=== PATIENT | male | born 1935 | race Caucasian/White ===

== ENCOUNTER 2016-08-18 07:50 | Inpatient (IN) | payer MEDICARE ==
[2016-08-18] VITALS (35 sets, daily range): BP systolic 86–156; BP diastolic 43–82; PULSE 84–99; RESP 15–26; O2SAT 87–100
[~2016-08-18] VITALS: Ht 177.8 cm; Wt 102.1 kg
[~2016-08-18 07:50] MED LIST: ACET325T51 PO; CALC500T9 PO; CERA453C2 EXT; CETI10TA27 PO; GABA-502 PO; HYDR12.55 PO; HYDR200T5 PO; KEN25CR EXT; KETO5DRO80 OD; LEVO88TA4 PO; OFLO5DRO9 OD; PILO5TAB2 PO; POLY17PO6 PO; PRD5T PO; PRED5DRO6 OD
--- NOTE | 2016-08-18 07:52 | ED.REPORT ---
HPI-Chest Pain 40 and Over Date of Service August 18, 2016 ED Provider: Rob Giordano MD Pt is an 81 y.o. male with a hx of "LE stents" secondary to peripheral vascular disease, GERD, HTN, and anal squamous carcinoma who presents to the ED c/o left chest pain described as sharp/achey onset 3 days ago. Pt reports associated nausea, vomiting, belching, abdominal bloating, throat pain, and neck pain. Pt state that his chest pain is exacerbated by exercise and deep inspiration. He also states he is unable to lie in a supine position due to his throat pain. He denies currently taking blood thinners. He denies any history of DVT or PE. He denies any history of heart attack. Denies any history of cardiac stents. Pt is a poor historian and needs frequent redirection. Nursing Notes Stated Complaint: CHEST PAIN Nursing Notes Reviewed: Yes Allergies: Coded Allergies: No Known Allergies (Verified , NONE, 11/19/15) Scheduled Acetaminophen (Acetaminophen) 325 Mg Tablet 650 MG PO BID Ceramides 1,3,6-11 (Cerave) 453 Gm Cream..g. 1 APPLIC EXT DAILY Cetirizine HCl (All Day Allergy) 10 Mg Tab.chew 20 MG PO DAILY Hydrochlorothiazide (Hydrochlorothiazide) 12.5 Mg Tablet 25 MG PO DAILY Hydroxychloroquine Sulfate (Hydroxychloroquine Sulfate) 200 Mg Tablet 200 MG PO BID Ibuprofen (Ibuprofen) 200 Mg Capsule 600 MG PO BID Levothyroxine (Levothyroxine) 88 Mcg Tablet 88 MCG PO DAILY Pilocarpine (Pilocarpine) 5 Mg Tablet 5 MG PO QID Take every four hours during the day Polyethylene Glycol 3350 (Miralax) 17 Gm Powd.pack 17 GM PO DAILY Prednisone (PredniSONE) 5 Mg Tab 5 MG PO DAILY Scheduled PRN Calcium Carbonate (Tums) 500 Mg Tab.chew 500 MG PO PRN PRN PRN For Epigastric Distress Clindamycin HCl (Cleocin) 150 Mg Capsule 300 MG PO QID PRN PRN For Urinary Retention Gabapentin (Gabapentin) 300 Mg Capsule 300 MG PO DAILY PRN PRN For Pain Triamcinolone Acet (Triamcinolone Acetonide Cream) 1 Applic/0.25 Gm Cr 1 APPLIC EXT DAILY PRN PRN For Itching to rash affected areas General Time Seen by MD: 07:54 Chief Complaint Chest pain Hx Obtained From: Patient Arrived By: Walk-in Sudden in Onset?: Yes Onset Occurred: 3 days ago Symptom Duration: Since onset Location: : Chest left: Neck Quality: Painful Past Medical History Past Medical History seasonal allegies restless leg syndrome History of treatment of left ureteral stricture and ureteral calculus July 29, 2013. Left-sided pleural-based spiculated mass, thought to be benign in nature, per comments below. History of total body pruritic rash, followed by Dr. Hale and Dr. Ponce of Allergy. Not thought to be paraneoplastic despite his past cancer history. 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 Urethral stricture. Bilateral femoral angiography with runoff with percutaneous intervention on totally occluded left superficial femoral artery, Dr. Hough, November 25, 2013. Reports: Cancer, GERD, Hypertension Past Surgical History peripheral vascular disease with stents in left leg Primary repair of umbilical hernia, Dr. Park, February 25, 2014. Reports: Appendectomy Family History non-contributory Smoking History Never Smoker Social History Other Social History: Ambulatory Status Independent Review of Systems Abdominal bloating Cardiovascular: Reports: Chest pain GI: Reports: Belching, Nausea, Vomiting Musculoskeletal: Reports: Neck pain Complete sys rev & neg: except as marked. Ears / Nose / Throat: Reports: Throat pain Physical Exam Initial Vital Signs Vital Signs (First) Date Time Temp Pulse Resp B/P Pulse Ox O2 Delivery O2 Flow Rate FiO2 08/18/16 07:58 36.5 99 16 153/69 100 Room Air 08/18/16 08:13 2 Initial VS: Reviewed Head / Eyes: Atraumatic, Normocephalic, PERRL Extremities: Vascular intact, Neuro intact Skin: Warm, Dry, No cyanosis Psychiatric: Mood/affect normal, Behavior normal, Normal thought content General/Constitutional: Awake, Alert, No acute distress, Well appearing, Well developed, Well hydrated, Well nourished Appearance / Presentation: Positive: Obese Respiratory / Chest: Atraumatic, Breath sounds NL, Breath sounds = bilat, No respiratory distress, No chest tenderness No reporducible tendernes to chest wall with palpation. Cardiovascular: Heart rate NL, Regular rhythm, Heart sounds NL, Cap refill not delayed, Peripheral circulation NL No unilateral calf swelling Abdomen: Atraumatic, Soft, Non-tender, No guarding, No rebound, No distention Neck: Atraumatic, Supple Neurologic: Oriented X3, Speech NL No laterizing neurologic findings. Interpretation & Diagnostics Lab Results Interpretation Result Diagram: 08/18/16 0800 08/18/16 0800 Test 08/18/16 08:00 White Blood Count 8.1th/mm3 (3.8-10.1) Red Blood Count 3.92mil/mm3 (4.40-5.80) Hemoglobin 12.3g/dL (13.8-17.2) Hematocrit 37.9% (41.0-50.0) Mean Corpuscular Volume 96.7fL (81-100) Mean Corpuscular Hemoglobin 31.4pg (27.0-35.0) Mean Corpuscular Hemoglobin Concent 32.5% (32.0-37.0) Red Cell Distribution Width 16.2% (12.3-15.4) Platelet Count 166bil/L (150-400) Neutrophils (%) (Auto) 77.7% (40-74) Lymphocytes (%) (Auto) 10.7% (14-46) Monocytes (%) (Auto) 9.4% (4-12) Eosinophils (%) (Auto) 0.7% (0-5) Basophils (%) (Auto) 0.4% (0-3) Activated Partial Thromboplast Time 28.0sec (22.8-33.0) Sodium Level 133mEq/L (134-144) Potassium Level 3.6mEq/L (3.5-5.2) Chloride Level 92mEq/L (97-108) Carbon Dioxide Level 25mmol/L (18-29) Blood Urea Nitrogen 18mg/dL (8-27) Creatinine 0.82mg/dL (0.76-1.27) Estimat Glomerular Filtration Rate 96mL/min (>59) Glucose Level 155mg/dL (60-99) Calcium Level 9.7mg/dL (8.5-10.1) Magnesium Level 1.6mg/dL (1.6-2.6) Total Bilirubin 0.4mg/dL (0.0-1.2) Aspartate Amino Transf (AST/SGOT) 16U/L (0-50) Alanine Aminotransferase (ALT/SGPT) 11U/L (0-44) Alkaline Phosphatase 76U/L (25-160) Troponin T 0.031ug/L (0.0-0.011) Pro-B-Type Natriuretic Peptide 1427pg/mL (0-486) Total Protein 7.5g/dL (6.4-8.4) Albumin 4.2g/dL (3.4-5.0) Hold [place] Top Tube Received (Received) ECG Interpretation ECG Interpretation: EKG demonstrates sinus rhythm at 96 bpm with RBBB pattern. There is ST depression in anteroseptal and lateral leads of 2-3mm. When compared to prior (11/19/15) ST depression is new. Time: 07:57 Interpreted by: ED physician Normal ECG Interpretation: Normal rate (96), Normal sinus rhythm X-Ray Chest Interpretation Chest Xray Interpretation: IMPRESSION: Bibasilar pneumonia. Follow up plain films of the chest are recommended to ensure resolution, and to exclude underlying or central malignancy. Dictated by: Jennie Lopez M.D. on 08/18/2016 at 8:43 Approved by: Jennie Lopez M.D. on 08/18/2016 at 8:44 Re-Eval/Medical Decision Med Decision/Clinical Course Pt is an 81 y.o. male with a hx of "LE stents" secondary to peripheral vascular disease, GERD, HTN, and anal squamous carcinoma who presents to the ED c/o left chest pain described as sharp/achey onset 3 days ago. Pt reports associated nausea, vomiting, belching, abdominal bloating, throat pain, and neck pain. Pt state that his chest pain is exacerbated by exercise and deep inspiration. He also states he is unable to lie in a supine position due to his throat pain. He denies currently taking blood thinners. He denies any history of DVT or PE. He denies any history of heart attack. Denies any history of cardiac stents. Pt is a poor historian and needs frequent redirection. EKG demonstrates sinus rhythm at 96 bpm with RBBB pattern. There is ST depression in anteroseptal and lateral leads of 2-3mm. When compared to prior () ST depression is new. IV access was obtained and we administered sublingual nitroglycerin as well as 324 mg of aspirin. Patient did not have much improvement in pain and therefore was treated with IV morphine. Initial presentation highly concerning for acute coronary syndrome. Multiple attempts were made to contact on-call oil truck driver Dr. Vogt upon the patient' s arrival however we were not successful for a period of greater than 30 minutes. Eventually I was able to contact on-call oil truck driver who agreed to evaluate the patient in the emergency room and recommended that we initiate heparin bolus and infusion. Chest x-ray obtained as below: Bibasilar pneumonia. Follow up plain films of the chest are recommended to ensure resolution, and to exclude underlying or central malignancy. Chest x-ray finding as above consistent with clinical picture. Patient denies fever or cough. I am unconvinced of pneumonia at this time however will observe closely and initiate antibiotics as indicated. Laboratory studies notable as below: CBC unremarkable CMP unremarkable Troponin is 0.031 BNP is 1427 PTT is 28 Patient has been admitted to CCU in consultation with cardiology on heparin infusion. Overall presentation at this time most consistent with acute coronary syndrome. No major risk factors for pulmonary embolism, no physical exam findings suggestive of DVT and my suspicion for PE is at this time relatively low. That being said, he is being treated with heparin for acute coronary syndrome regardless. Patient transferred in stable condition. Source of Hx: Old records Re-Evaluation/Progress Note: Discussed need for admit with pt. Pt understands and agrees with plan. Consultation #1: Referral / Consult Name: Iris Vogt MD Consulted With: Cardiology Requested Call at: 08:05 Call Returned at: 08:46 Note: Cardiology was originally paged at [phone], they were paged a second time at 0837. Awaiting response. Call returned at 0846. Discussed pt condition. Recommends Heparin and will come in to ED to see pt. Consultation #2: Referral / Consult Name: Chevy Rosado MD Consulted With: Hospitalist Call Returned at: 09:14 Service Writer Advisor: Accepts admit Note: Discussed pt codnition and consult with Dr. Vogt. Accepts admit. Counseled Regarding: Diagnosis, Lab results, Need for follow-up, When/why to return to ED Discharge & Departure Primary Impression: ACS (acute coronary syndrome) Additional Impressions: Chest pain Chest pain type: unspecified Qualified Code: R07.9 - Chest pain, unspecified Peripheral vascular disease ST segment depression Disposition: ADMITTED TO HOSPITAL Discharge Condition All VS Reviewed: Yes Condition: Improved Referrals: Kael Ayala MD (PCP) Crit Care Except Billable Proc Time Spent: 105-134 minutes Services Performed: Patient management by me, Time spent at bedside, Reviewing test results, Reviewing imaging, Discussing patient care, Documentation in record, Time with fam/surrogate Scribe Attestation Portions of this note were transcribed by Lui Mcclellan. I, Dr. Giordano personally performed the history, physical exam and medical decision-making; I reviewed and confirmed the accuracy of the information in the transcribed note. Signed by: Nikia Leiva, 08/18/16 and 0924. copies to: Kael Ayala MD, Beck O MD August 18, 2016 07:52 LUI MCCLELLAN August 18, 2016 08:11
[2016-08-18 08:14] LABS: BASOPHILS % (AUTO) 0.4 % (0-3); EOSINOPHILS % (AUTO) 0.7 % (0-5); MONOCYTES % (AUTO) 9.4 % (4-12); Mean Corpuscular Hemoglobin 31.4 pg (27.0-35.0); Mean Corpuscular Volume 96.7 fL (81-100); NEUTROPHILS % (AUTO) 77.7 % (40-74); Platelet Count 166 bil/L (150-400)
[2016-08-18 08:41] LABS: TROPONIN T 0.031 ug/L (0.0-0.011)
--- NOTE | 2016-08-18 08:45 | DRSVH ---
PROCEDURE: X-RAY CHEST ONE VIEW, PORTABLE ([id number]) INDICATIONS: sob TECHNIQUE: One view of the chest was acquired. COMPARISON: None. FINDINGS: Surgical changes and devices: None. Lungs and pleura: No pleural effusions or pneumothorax. Mild patchy bibasilar opacities. Mediastinum: Mediastinal contours appear normal. Heart size is normal. Bones and chest wall: No suspicious bony lesions. Overlying soft tissues appear unremarkable. IMPRESSION: Bibasilar pneumonia. Follow up plain films of the chest are recommended to ensure resolut ion, and to exclude underlying or central malignancy. Dictated by: Jennie Lopez M.D. on 08/18/2016 at 8:43 Approved by: Jennie Lopez M.D. on 08/18/2016 at 8:44
[2016-08-18] MEDS ORDERED: Ondansetron 2 mg/mL 2 mL Inj IVPUSH PRN ×3 (08:50→16:35)
[2016-08-18] MEDS ORDERED: Alum-Mag Hydrox-Simeth 30 mL Suspension PO PRN ×2 (08:50→12:20)
[2016-08-18] MEDS ORDERED: Heparin 25K Unit/500mL 0.45 NS 25,000 UNIT in IV Premix 1 EACH IV ONE (08:50)
[2016-08-18] MEDS ORDERED: Heparin 5,000 Unit/mL Inj IVPUSH ONE (08:50)
[2016-08-18 08:52] LABS: Magnesium 1.6 mg/dL (1.6-2.6)
[2016-08-18] MEDS ORDERED: CLIN150C2 PO (08:52)
[2016-08-18] MEDS ORDERED: IBUP200C PO (08:52)
--- NOTE | 2016-08-18 10:06 | PCM.CHPCAR ---
Consult Subjective Date of service August 18, 2016 Date of admit August 18, 2016 at 09:42 Provider Requesting Consult Requesting Provider: Rob Giordano MD Primary Care Physician Primary Care Physician: Maurizio Rowland MD Chief Complaint chest pain History of Present Illness Patient is an 81-year-old man who presents today for chest pain described as sharp in nature and worsening with inspiration and lying flat. The patient states that this began 1-2 days ago. The pain is described as sharp and constant in nature rated at 5 at baseline and up to 8 with deep inspiration. The pain is left sided to right sided across his lower chest and radiates into his neck with the sensation of fullness and sore throat. The patient states that he often has pain substernal into his neck from his Sjgren's and GERD. The pain across his chest is new and different. Patient denies fever or chills or cough. The patient denies any unilateral leg swelling or color changes. The patient describes typical symptoms of chronic orthopnea requiring multiple pillows and states that he does not sleep on his back but on his right side typically. The patient states that he recently started an exercise regimen described as mostly stretching and changed his diet in an attempt to lose weight. The patient was at physical therapy 2 days ago when he began to notice a headache described as bandlike which the patient states is a chronic 20 year condition due to a nerve behind his ear. The patient is a physical therapy to attempt to get back into a more routine golf game. The patient has a supervisor hydrochloric area in [place] which he does not know the name of at this time. He was last seen by his supervisor hydrochloric area for routine evaluation for possible lower extremity bypass graft procedure. The patient denies any recent surgical procedures or prolonged immobility. The patient has a history of anal squamous carcinoma treated with combined modality therapy, 5-FU/mitomycin-C and radiation completed June 14, 2005 without recurrence. The patient states that he received three doses of nitro in the ED which did not seem to help his chest pain. He stated that he received three doses of morphine in the ED and it seems to have helped the chest pain across his chest but not the pain radiating into his neck. Review of Systems Review of Systems Comprehensive review of systems was completed and all are negative except for what is included in the history of present illness. PMH Past Medical History seasonal allergy restless leg syndrome Peripheral neuropathy GERD Sjogren's History of radiation to tonsils in childhood Hypertension History of anal squamous carcinoma treated with combined modality therapy, 5-FU/ mitomycin-C and radiation completed June 14, 2005. History of treatment of left ureteral stricture and ureteral calculus post oncology radiation treatment July 29, 2013. Left-sided pleural-based spiculated mass, thought to be benign in nature Thyroid nodule, thought to be benign in nature by History of total body pruritic rash, followed by Dr. Hale and Dr. Ponce of Allergy. Not thought to be paraneoplastic despite his past cancer history. Bilateral femoral angiography with runoff with percutaneous intervention on totally occluded left superficial femoral artery, Dr. Hough, November 25, 2013. Past Surgical History peripheral vascular disease with stents in superficial femoral artery left leg Primary repair of umbilical hernia, Dr. Park, February 25, 2014. Appendectomy Scheduled Acetaminophen (Acetaminophen) 325 Mg Tablet 650 MG PO BID (Reported) Ceramides 1,3,6-11 (Cerave) 453 Gm Cream..g. 1 APPLIC EXT DAILY (Reported) Cetirizine HCl (All Day Allergy) 10 Mg Tab.chew 20 MG PO DAILY (Reported) Hydrochlorothiazide (Hydrochlorothiazide) 12.5 Mg Tablet 25 MG PO DAILY ( Reported) Hydroxychloroquine Sulfate (Hydroxychloroquine Sulfate) 200 Mg Tablet 200 MG PO BID (Reported) Ibuprofen (Ibuprofen) 200 Mg Capsule 600 MG PO BID (Reported) Levothyroxine (Levothyroxine) 88 Mcg Tablet 88 MCG PO DAILY (Reported) Pilocarpine (Pilocarpine) 5 Mg Tablet 5 MG PO QID (Reported) Take every four hours during the day Polyethylene Glycol 3350 (Miralax) 17 Gm Powd.pack 17 GM PO DAILY Prednisone (PredniSONE) 5 Mg Tab 5 MG PO DAILY (Reported) Scheduled PRN Calcium Carbonate (Tums) 500 Mg Tab.chew 500 MG PO PRN PRN PRN For Epigastric Distress (Reported) Clindamycin HCl (Cleocin) 150 Mg Capsule 300 MG PO QID PRN PRN For Urinary Retention (Reported) Gabapentin (Gabapentin) 300 Mg Capsule 300 MG PO DAILY PRN PRN For Pain ( Reported) Triamcinolone Acet (Triamcinolone Acetonide Cream) 1 Applic/0.25 Gm Cr 1 APPLIC EXT DAILY PRN PRN For Itching (Reported) to rash affected areas Discontinued Medications Ketorolac Tromethamine (Ketorolac Tromethamine) 5 Ml Drops 5 ML OD QID (Reported ) Ofloxacin (Ofloxacin) 5 Ml Drops 5 ML OD QID PRN PRN For Eye Irritation ( Reported) Prednisolone Acetate (Prednisolone Acetate) 5 Ml Drops.susp 1 GTT OD BID PRN PRN For Eye Irritation (Reported) Current Inpatient Medications Current Medications Nitroglycerin 0.4 mg Q5MIN PRN SL Last administered on 08/18/16t 08:14; Admin Dose 0.4 MG; Start 08/18/16 at 08:25 Al Hydrox/Mg Hydrox/Simethicone 30 ml Q6 PRN PO; Start 08/18/16 at 08:50 Ondansetron HCl Dose range: 4 mg to 8 mg Q4H PRN IVPUSH; Start 08/18/16 at 08: 50 Acetaminophen 975 mg Q6H PRN PO; Start 08/18/16 at 08:50 Allergies: Coded Allergies: No Known Allergies (Verified , NONE, 11/19/15) Family History Family History Father in an work-related oil fire in [place] Mother lived to be 87 and reportedly of old age No noted history of heart disease in siblings. No children. 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: Yes (Stopped 1 month ago ) Alcoholic Drinks Per Day: 1 drink per weekHx Substance Use: NoHx Tobacco Use: No Smoking Status: Never Smoker Exam Vital Signs Vital Sign - Last Date Time Temp Pulse Resp B/P Pulse Ox O2 Delivery O2 Flow Rate FiO2 08/18/16 08:46 86 18 122/56 97 Nasal Cannula 2 08/18/16 07:58 36.5 Additional Information General appearance: No apparent distress, well-nourished, pleasant, cooperative HEET: Normocephalic atraumatic, no scleral icterus, tongue midline, mucous membranes moist Neck: supple, very mild JVD Cardiovascular: Hyperdynamic heart sounds, RRR, normal S1 and normal S2, 2/6 systolic ejection murmur at apex radiating to axilla, no rubs/gallops, PMI nondisplaced, very mild JVD, no peripheral edema Respiratory: Mild crackles noted in left lower lung shoemaker both axillary and posterior, Good aeration in all other lung shoemaker, no wheezing Abdomen: Soft, nontender, distended, + bowel sounds Neuro: Alert, no facial droop, tongue midline Psych: appropriate affect Skin: Warm and dry, no rashes on face, neck, and lower extremities Lab and Diagnostics Labs Troponin initially 0.031, proBNP 1427, CK 74 and CK-MB 1.8, Total cholesterol 185, LDL 77, APTT 28, WBC 8.1 with neutrophil predominance 77.7%, procalcitonin 0.07 Result Diagram: 08/18/16 0800 08/18/16 0800 X-Rays, CTs and MRIs Portable chest x-ray: Possible bibasilar pneumonia with diffuse infiltration in the left lower costophrenic angle obscuring the left heart border and diaphragm 12-lead ECG Sinus rhythm with first-degree heart block [place] interval calculated at 216, right bundle branch block and nonspecific downsloping ST depression changes in anterior septal leads when compared to prior ECG studies (previous ST segments depressed and upsloping) Additional Diagnostics: Prior CATHETERIZATION LABORATORY REPORT IMPRESSION: Mild diffuse atherosclerotic plaque without major obstructive lesions with normal ventricular function. Dr. Hough will proceed with diagnostic lower extremity angiography and intervention as appropriate. Electronically Authenticated by: Ceasar Perez MD 11/22/2011 11:28:37 [facility] Echocardiogram Report Interpretation Summary 1) Mild concentric left ventricular hypertrophy with normal size and moderately reduced systolic function (EF 35-40%). 2) Mid to apical anterolateral wall, mid to apical anterior wall, and the entire apex have severe hypokinesis/akinesis. The posterolateral wall is also hypokinetic. 3) Normal right ventricular size and function. 4) Moderate mitral regurgitation present. 5) Compared to the Echo done 06/17/2014, LV function has dropped from normal to 35-40% and wall motion abnormalities in the LAD territory are new on today's study. Findings consistent with ischemic cardiomyopathy. Reading Physician:12: 03 PM Assessment & Plan Assessment 81-year-old man with past medical history remarkable for peripheral arterial disease in lower left extremity who presents with chest pain worse on inspiration 2 days. # Chest pain and NSTEMI: patient has typical and atypical features. Cardiology was consulted from the with one troponin at 0.031, proBNP of 1427, CK 74 and CK- MB 1.8, and nonspecific ST-T segment downsloping depression in the anterior septal leads. Chest x-ray is concerning for possible bilateral lower lobe pneumonia L>R. Patient has a past medical history remarkable for peripheral arterial disease with occlusion of the superficial femoral artery in his left lower extremity last noted on Doppler 07/27/2016. The patient last had a cardiac catheterization done in 2011 with mild diffuse atherosclerotic plaque without major obstructive lesions with normal ventricular function. Well's criteria for pulmonary embolism calculated at 0 points with a low risk of PE at 1.3%. Compared to the Echo done 06/17/2014, LV function has dropped from normal to 35-40% and wall motion abnormalities in the LAD territory are new on today's study. Findings consistent with ischemic cardiomyopathy. Dr. Vogt has discussed the patient with the on-call supervisor hydrochloric area (Dr. Skinny Marcelino) at [facility] and JESSICA performed last year showed an EF of 50%. JESSICA was performed by Dr. Paz for mitral regurgitation evaluation. Plan: - obtain records from [facility] including echo and cath reports - Patient started on heparin drip, full dose aspirin, sublingual nitroglycerin and 2 mg morphine IV in the ED for possible ACS - Repeat troponins every 6 hours until decreasing - ECG PRN - Sublingual nitroglycerin and IV morphine available PRN - however he states that these medications did not really seem to help in the ED - GI cocktail ordered - Start atorvastatin 40mg qhs - Coronary angiography with possible PCI. Informed consent obtained after discussing risks vs. benefits and alternatives. # Systolic heart failure likely from ischemic Cardiomyopathy with decreased EF 35-40%: Compared to the Echo done 06/17/2014, LV function has dropped from normal to 35-40% and wall motion abnormalities in the LAD territory are new on today's study. Findings consistent with ischemic cardiomyopathy. Physical exam and CXR suggestive of HF exacerbation. Dr. Vogt has discussed the patient with the on-call supervisor hydrochloric area at [facility] and the echo performed last year showed an EF of 50%. - Start metoprolol 25mg XL daily - Start lisinopril 2.5mg qhs - Consider furosemide 20mg IV dose after cath # Mitral valve regurgitation: Patient states that this is not new and he is being followed by his supervisor hydrochloric area at [facility] Dr. Paz. Stable on Echo today. Continue to monitor. # PAD: stable. Management as above in NSTEMI section Pain Evaluation: Pain not Controlled VTE Prophylaxis: Other (Heparin Gtt) Resuscitation Status: CPR: Attempt Resuscitation Attending Statement I saw, examined, and evaluated the patient with Dr. Mahi Romero on 2016 and agree with the note as above along with my edits. Mahi Romero DO August 18, 2016 10:06 Iris Vogt MD August 18, 2016 14:10 - obtain records from [facility] including echo and cath reports Pain Evaluation: Pain not Controlled VTE Prophylaxis: Other (Heparin Gtt) Resuscitation Status: CPR: Attempt Resuscitation Mahi Romero DO August 18, 2016 10:06
[2016-08-18 10:27] LABS: Creatine Kinase 74 U/L (21-232)
--- NOTE | 2016-08-18 11:45 | NUR ---
Admission Elderly male received from ER to room 2000. transported via wheelchair. pt alert and oriented. reports continued moderate pain of medial upper chest. Heparin infusing. pt with steady gait. up to bathroom, using urinal. call light in reach and POC reviewed patient.
--- NOTE | 2016-08-18 12:03 | DRSVH ---
[facility] [address] [place] [address] Echocardiogram Report Name: CLEM STEARNS BStudy Date : 08/18/2016 Height: 70 in Hospital Exam Location: [facility] Weight: 22 5 lb Gender: Male BSA: 2.2 m2 : 1935 Age: 81 yrs BP: 121/63 mmHg Reason For Study: Chest pain Ordering Physician: HOSPITALIST [facility] Performed By: Lonnie Adkins Referring Physician: ROBERT ANAND Interpretation Summary 1) Mild concentric left ventricular hypertrophy with normal size and moderately reduced systolic function (EF 35-40%). 2) Mid to apical anterolateral wall, mid to apical anterior wall, and the entire apex have severe hypokinesis/akinesis. The posterolateral wall is also hypokinetic. 3) Normal right ventricular size and function. 4) Moderate mitral regurgitation present. 5) Compared to the Echo done 06/17/2014, LV function has dropped from normal to 35-40% and wall motion abnormalities in the LAD territory are new on today's study. Findings consistent with ischemic cardiomyopathy. Procedure: A two-dimensional transthoracic echocardiogram with color flow and Doppler was performed. The study quality was technically adequate. A contrast injection of Definity was performed to improve assessment of LV function. Comparison is made with the echocardiogram of 06/17/14. The patient was in normal sinus rhythm during the exam. The heart rate ranged between 84- 88 bpm during the study. Left Ventricle: The left ventricle is normal in size. There is mild concentric left ventricular hypertrophy. The ejection fraction is estimated to be 35-40%. Mid to apical anterolateral wall, mid to apical anterior wall, and the entire apex have severe hypokinesis/akinesis. The posterolateral wall is also hypokinetic. Assessment of diastolic parameters indicates a relaxation abnormality of the left ventricle, consistent with normal filling pressures. Right Ventricle: The right ventricle is normal in size, thickness and function. Atria: The left atrium is moderately dilated. Right atrial size is normal. The interatrial septum is intact with no evidence for an atrial septal defect. Mitral Valve: The mitral valve leaflets are slightly calcified. There is moderate mitral regurgitation. Aortic Valve: The aortic valve is normal in structure and function. There is no aortic valve stenosis. There is trace aortic regurgitation. Tricuspid Valve: The tricuspid valve is normal. There is mild tricuspid regurgitation. Right ventricular systolic pressure is estimated to be 31 mmHg plus the clinically estimated CVP which cannot be estimated on this exam. Pulmonic Valve: The pulmonic valve leaflets are thin and pliable; valve motion is normal. There is a trace or physiologic amount of pulmonic regurgitation. Great Vessels: The aortic root is normal size. The ascending aorta is at the upper limits of normal in size. The pulmonary artery is normal size. The inferior vena cava was not visualized. Pericardium/ Pleura There is no pericardial effusion. There is no pleural effusion. MMode/2D Measurements & Calculations LVIDd: 5.2 cm RA long axis: 5.2 cm LVOT diam: 2.4 cm LVIDs: 3.6 cm LA A2 area: 23.6 cm AoV Opening FS: 31.0 % LA A4 area: 28.5 cm RA area: 16.1 cm EPSS: 0.33 cm LA length (vol) RA vol: 42.3 ml Ao root diam IVSd: 1.1 cm RA : 19.3 ml/m2 LVPWd: 1.1 cm LA vol: 101.7 ml asc Aorta Diam LA vol index Ao Arch Diam (Prox : 46.3 ml/m2 Trans): 2.8 cm EDV(MOD-sp2) LV almaguer. diameter/BSA LV sys. diameter/BSA RVD1 (basal) (cm/m^2): 2.4 (cm/m^2): 1.7 : 4.4 cm ESV(MOD-sp2) EF(MOD-sp2) RVD2 (mid) TAPSE: 2.3 cm : 2.7 cm Doppler Measurements & Calculations Ao V2 max MV E max theo MV E/A: 0.59 TR max theo : 163.6 cm/sec : 81.8 cm/sec Med Peak E' Theo : 279.1 cm/sec Ao max PG MV A max theo TR max PG : 10.7 mmHg : 139.3 cm/sec E/E' med: 7.9 : 31.2 mmHg Ao mean PG Lat Peak E' Theo PA V2 max MVA(VTI): 2.8 cm : 100.9 cm/sec LVOT Max Theo MR ERO: 0.24 cm2 E/E' lat: 10.2 PA mean PG : 89.1 cm/sec E/e' average: 9.0 : 2.1 mmHg MICKY(I,D): 2.9 cm sev ratio MV V2 mean Ao V2 mean LV V1 max PG MR flow rate : 98.4 cm/sec : 106.2 cm/sec : 133.4 cm3/sec MV mean PG Ao V2 VTI: 27.6 cm LV V1 VTI: 18.0 cm MR PISA radius MICKY(V,D): 2.4 cm2 MV V2 VTI MV dec time : 0.13 sec PA V2 mean MICKY indexed to BSA : 68.1 cm/sec (cm^2/m^2): 1.3 PA pr(Accel) : 22.9 mmHg Reading Physician:12:03 PM
[2016-08-18] MEDS ORDERED: Polyethylene Glycol (PEG) 17 Gm Powder PO PRN (12:20)
[2016-08-18] MEDS ORDERED: Senna-Docusate 8.6-50 mg Tablet PO PRN (12:20)
[2016-08-18] MEDS ORDERED: LidocaineVisc 2%:Antacid 1:1 10 mL Syringe PO STA (12:22)
[2016-08-18] MEDS ORDERED: Heparin 5,000 Unit/mL Inj IVPUSH PRN (12:40)
[2016-08-18] MEDS ORDERED: Heparin 25K Unit/500mL 0.45 NS 25,000 UNIT in IV Premix 1 EACH IV SCH (12:40)
[2016-08-18 12:44] LABS: APPEARANCE,URINE HAZY (CLEAR,HAZY); COLOR,URINE YELLOW (YELLOW); OCCULT BLOOD,URINE NEGATIVE (NEGATIVE); UROBILINOGEN,URINE NORMAL (NORMAL)
[2016-08-18 13:33] LABS: Creatine Kinase 68 U/L (21-232)
[2016-08-18 13:53] LABS: TROPONIN T 0.033 ug/L (0.0-0.011)
[2016-08-18] MEDS ORDERED: Heparin 1,000 Units/500 mL NS Premix IV ONE (14:08)
[2016-08-18] MEDS ORDERED: Heparin 1,000 Unit/mL 10 mL Inj ONE (14:08)
[2016-08-18] MEDS ORDERED: Nitroglycerin 50,000 mcg/250 mL D5W Premix IV ONE (14:08)
[2016-08-18] MEDS ORDERED: Heparin 10,000 Unit/1,000 mL NS Premix IV ONE (14:09)
[2016-08-18] MEDS ORDERED: 0.9% Sodium Chloride 1,000 ML ONE (14:09)
--- NOTE | 2016-08-18 14:10 | NUR ---
Chest pain pt reporting ongoing chest pain. Resident and cardiology resident at bedside. Aware of situation. Nitro given x2, until notable drop in blood pressure. Morphine given per MD instruction. chest pain unresolved, plan for patient to go to cathlab.
--- NOTE | 2016-08-18 14:30 | NUR ---
To cathlab pt transported via bed to cathlab. optical lens manufacturing tech informed. heparin stopped per laila Moser upon departure.
[2016-08-18] MEDS ORDERED: fentaNYL-PF 50 mCg/mL 2 mL Inj ONE (14:42)
[2016-08-18] MEDS ORDERED: Labetalol 5 mg/mL 20 mL Inj ONE (14:53)
[2016-08-18] MEDS ORDERED: Verapamil 2.5 mg/mL 2 mL Inj ONE (14:54)
[2016-08-18] MEDS ORDERED: TRIAMCINOLONE ACET EXT PRN (15:45)
--- NOTE | 2016-08-18 15:50 | NUR ---
Return to 2000 pt return to room 2000 straight from cathlab. pt alert and oriented. transported in bed. pt on bedrest x4 hrs. TR band in place to right wrist. pt reports continued chest pain. MD informed. telemetry reapplied. call light in reach .
--- NOTE | 2016-08-18 15:55 | PCM.HPMED ---
Subjective Date of Service August 18, 2016 Primary Provider: Admitting Physician: Chevy Rosado MD Primary Care Physician: Maurizio Rowland MD Attending Physician: Chevy Rosado MD Chief Complaint: "chest pain" History of Present Illness: Mr. Jorge Nielson is an 81 year old man with history of peripheral vascular disease with a left superficial femoral artery stent who presented to the emergency department for chest pain that started 10 days ago but changed in quality 2-3 days ago. He states that 2 weeks ago he tried changing his lifestyle by exercising more and eating an all protein diet. He started having intermittent pain across his chest and associated upper back tightness and sore throat that started after exercising. However, for the past 1 day he has had constant retrosternal chest pain that he has never had before. He thought it was related to heartburn so he tried making himself vomit to feel better, which did not help. He also states that it gets worse with talking, with movement including inspiration, and lying flat. He describes it as sharpness that is now radiating into his left axilla. He does not have associated diaphoresis, palpitation, nausea, vomiting, pre-syncopal episode, or leg edema. He does not report dyspnea but has trouble taking a deep breath secondary to pain. He was re -evaluated for his left femoral artery stenosis about 2 weeks ago and was told that he may need surgery for it. He denies any recent surgical procedures or prolonged immobility. 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 He does not have changes in his weight or bowel movements, hematuria, hematochezia, melena, new numbness , focal weakness, fever, chills, nasal congestion, or cough. In the emergency department, he was given 324 mg of aspirin, sublingual nitroglycerin without pain relief, and IV morphine. EKG in the emergency department showed RBBB and ST depression in anteroseptal and lateral leads of 2- 3 mm. His chest x-ray showed possible bibasilar pneumonia, but there was not a clinical concern for pneumonia so antibiotics were not initiated. Cardiology was consulted and recommended initiating a heparin bolus and infusion. Review of Systems: A comprehensive review of systems was conducted with the patient and found to be negative except as above in the History of Present Illness. Allergies Coded Allergies: No Known Allergies (Verified , NONE, 11/19/15) Home Medications Jorge Nielson :1935 Page: 03/26 Medication Sig Comment Aller-Marcos 10 mg tablet take 1 tablets by oral route every day econazole 1 % topical cream apply by topical route 2 times every day to the affected and surrounding areas of skin gabapentin 300 mg capsule take 1 capsule by oral route every day hydrochlorothiazide 25 mg tablet take 1 tablet by oral route every day ibuprofen 200 mg tablet take 2 tablet by oral route every 6 hours as needed with food . ketoconazole 2 % shampoo apply by topical route every day to the affected area( s), lather, leave in place for 5 minutes, and then rinse off with water Miralax 17 gram/dose oral powder take (17G) by oral route every day mixed with 8 oz. water, juice, soda, coffee or tea pilocarpine 5 mg tablet take 1 tablet by oral route 4 times every day prednisone 5 mg tablet take 1 tablet by oral route every day triamcinolone acetonide 0.1 % topical cream APPLY BY TOPICAL ROUTE NEEDED . Tums 200 mg calcium (500 mg) chewable tablet as needed . PMH Seasonal allergies Restless leg syndrome Sjgren's Polymyalgia rheumatica Hypothyroidism History of treatment of left ureteral stricture and ureteral calculus, July 29, 2013. Left-sided pleural-based spiculated mass, thought to be benign in nature, per comments below. History of total body pruritic rash, followed by Dr. Hale and Dr. Ponce of Allergy. Not thought to be paraneoplastic despite his past cancer history. History of anal squamous carcinoma treated with combined modality therapy, 5-FU/ mitomycin-C and radiation completed June 14, 2005. Urethral stricture. Bilateral femoral angiography with runoff with percutaneous intervention on totally occluded left superficial femoral artery, Dr. Hough, November 25, 2013. Gastroesophageal reflux disease Hypertension Surgical History Peripheral vascular disease with stent in left leg Primary repair of umbilical hernia, Dr. Park, February 25, 2014. Appendectomy Left total hip replacement Family History Mother at 85-87 years old from natural causes Father was killed Sister has lost her vision and is obese He does not have any children Social History Occupation: former CPA for 45 years Hx Alcohol Use: Yes (Stopped 1 month ago, usually drinks 1-2 vodka drinks/week) Alcoholic Drinks Per Day: 1 drink per week Hx Substance Use: No Hx Tobacco Use: No Smoking Status: Never Smoker Living Arrangement: with Family () Exam Vital Signs Vital Sign - Last Date Time Temp Pulse Resp B/P Pulse Ox O2 Delivery O2 Flow Rate FiO2 08/18/16 12:23 36.5 89 20 135/71 95 Room Air 08/18/16 10:55 2 Exam General: Elderly man sitting upright in bedside chair in mild acute distress secondary to chest pain, well-developed, well-nourished, appropriately interactive HEENT: Normocephalic, atraumatic. External ears without defect. Pupils equal, round, and reactive to light and accommodation. Anicteric sclerae, moist conjunctivae, and no lid lag. Oropharynx free of erythema and cobble stoning with dry mucosa and lips. Neck: Supple with full range of motion. No jugular venous distension. No bruit. No lymphadenopathy or thyromegaly. Cardiovascular: Regular rate and rhythm with III/ systolic ejection murmur that radiates to the neck. No rubs or gallops appreciated. No chest wall tenderness. Bilateral radial pulses intact. Bilateral dorsal pedal pulses palpable but weak Pulmonary: Right lower lung back scattered crackles. No wheezes or rhonchi. Normal respiratory effort with no use of accessory muscles. Abdomen: Bowel tones present. Soft, nontender, nondistended. No hepatosplenomegaly or masses appreciated. Extremities: Chronic venous status changes bilateral lower legs. No clubbing or edema appreciated. Skin: Bilateral upper extremity with scattered excoriations and scars. Scattered actinic keratoses. Diffuse dry skin. Bilateral feet cool to touch. Neurological: Cranial nerves grossly intact. Grossly normal muscle strength, tone, and bulk. No known gait impairment. Psychiatric: Normal mood and affect. Alert and oriented to person, place, and time. Lab and Diagnostics Result Diagram: 08/18/16 0800 08/18/16 0800 X-Rays, CTs and MRIs PROCEDURE: X-RAY CHEST ONE VIEW, PORTABLE IMPRESSION: Bibasilar pneumonia. Follow up plain films of the chest are recommended to ensure resolution, and to exclude underlying or central malignancy. Approved by: Jennie Lopez M.D. on 08/18/2016 at 8:44 12-lead ECG RBBB, increased [place] interval, diffuse ST depression Cardiac Echo Impressions Echocardiogram Report Interpretation Summary 1) Mild concentric left ventricular hypertrophy with normal size and moderately reduced systolic function (EF 35-40%). 2) Mid to apical anterolateral wall, mid to apical anterior wall, and the entire apex have severe hypokinesis/akinesis. The posterolateral wall is also hypokinetic. 3) Normal right ventricular size and function. 4) Moderate mitral regurgitation present. 5) Compared to the Echo done 06/17/2014, LV function has dropped from normal to 35-40% and wall motion abnormalities in the LAD territory are new on today's study. Findings consistent with ischemic cardiomyopathy. Reading Physician:12: 03 PM Assessment & Plan Mr. Jorge Nielson is an 81 year old man with history of peripheral vascular disease with a left superficial femoral artery stent who presented to the emergency department for chest pain. Non-ST elevation myocardial infarction, acute, present on admission, active. - Pt is without any known coronary artery disease and presented with atypical chest pain with associated dyspepsia. EKG shows diffuse ST depression and pt has an elevated troponin level. Echocardiogram showed a decreased EF (35-40%) with mid to apical anterolateral and apical hypokinesis/akinesis, and moderate mitral regurgitation. He does not have signs of a DVT and does not report recent immobility or surgery. - CXR showed poor inspiratory effort with findings suggestive of possible pulmonary edema. Pt does not have fever, chills, symptoms suggestive of an upper respiratory infection, or a cough. He is afebrile and does not have a leukocytosis, and therefore, will not initiate antibiotics at this time. - LDL 77, HDL 51 - HgbA1c pending - Procalcitonin within normal limits - Strep pneumo and legionella antigens negative - Pt was given a full aspirin in the emergency department - Nitroglycerin sublingual as needed for chest pain - IV morphine 4 mg every 30 minutes as needed for chest pain - Nitroglycerin paste 1 inch applied today - EKG as needed for chest pain - Aspirin 81 mg daily, atorvastatin 40 mg at bedtime, metoprolol succinate 25 mg once daily, and lisinopril 2.5 mg once daily - Cardiology consulted and following. Their time and recommendations are appreciated. - Pt proceeded to cardiac label drier for a left heart catheterization with coronary angiogram, which was complicated by an artery dissection as below. Coronary angiogram was not obtained. 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 - Frequent monitoring of right radial pulse - Continue heparin Peripheral vascular disease, chronic. - Status post stent to left superficial femoral artery in 2013 - Start aspirin and statin as above Essential hypertension, chronic. - Hold home hydrochlorothiazide for now due to new metoprolol succinate and lisinopril - Monitor blood pressure History of anal squamous cell carcinoma in remission. - Pt has urethral stricture as a result and self-caths himself every morning - He also has chronic fecal incontinence unless he takes Miralax every evening - Continue pt's daily self-caths and Miralax scheduled Seasonal allergies and rash, chronic. - Continue cetirizine - Continue lotion and triamcinolone cream Sjgren's disease, chronic. - Continue home pilocarpine and hydroxychloroquine Restless legs syndrome, chronic. - Continue home gabapentin Polymyalgia rheumatica, chronic. - Continue home prednisone Hypothyroidism, chronic. - TSH within normal limits - Continue home levothyroxine Acetaminophen as needed for pain or fever. Maalox as needed for heartburn. Zofran as needed for nausea or vomiting. High risk medications: Heparin drip Patient is admitted under inpatient status with expected length of stay greater than 2 midnights due to severity of presenting symptoms, risk of adverse event, and complexity of treatment plan. CODE STATUS: FULL CODE VTE Prophylaxis: Other (heparin) Resuscitation Status: CPR: Attempt Resuscitation Attending Statement Patient seen and examined with house staff. Agree with all attached documentation. Anastasia Wynn DO August 18, 2016 13:37 Chevy Rosado MD August 19, 2016 07:44
--- NOTE | 2016-08-18 15:57 | PCM.CVCATH ---
Cardiac Cath Report Date of Service August 18, 2016 Primary Indication NSTEMI Procedure Peripheral angiography Vascular Access Right radial artery using 6 Fr sheath, closure with TR band. Diagnostic Catheters [place] 4.0 5Fr catheter Procedure Details Coronary angiography details: The patient was brought to the cardiac catheterization lab in the fasting state. Patient was laid supine on the cardiac catheterization table and the right forearm was prepped and draped in the usual sterile fashion. One percent Xylocaine was infiltrated over the right radial artery. Vascular access was then achieved under ultrasound guidance. Guide wire was used to advance the catheter through the sheath and up into mid axillary artery. Guidewire met resistance and was removed to take a picture with small amount of contrast. The picture revealed tortuosity and possible stenosis. Catheter was pulled back a little and guidewire was reintroduced. Guidewire then was propagated gradually without much resistance until proximal subclavian artery. Picture was taken with small amount of contrast and it revealed a dissection. Catheter was pulled back to mid-distal axillary artery and picture was taken again with small amount of contrast. The picture showed a dissection at this level as well. Catheter was then pulled back to the brachial artery and picture here removed patent angiographically normal artery. Catheter was then removed completely. Sheath was connected to pressure and blood pressure was symmetric compared to the left brachial pressure for the next 20-25minutes. I reviewed the pictures with Dr. Jennie Lopez (interventional radiologist critical care nurse practitioner) and verbally spoke with Dr. Mehul Hough (intervention operations specialists) who agreed that this is a retrograde dissection and should be managed with close observation. Medications/Fluoro Time Medications administered: 1.Fentanyl: 25 mcg IV 2. Midazolam: 1.5 mg IV 3. Heparin: 5000 units IV 4. Nitroglycerin: 1000 mcg IA 5. Verapamil: 1 mg IA Fluoroscopy Time: see cath tech report Contrast (Isovue): 5 mls Blood loss: 5 mls Findings 1) Coronary angiography: Not obtained due to retrograde dissection of the right subclavian and axillary arteries. Complications There were no periprocedural complications identified. 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 Recommendations 1) Conservative management of the right axillary and right subclavian retrograde dissection. 2) Continue to medically manage cardiomyopathy and chest pain. Iris Vogt MD August 18, 2016 15:57 * [place] Cardiac Output [ ] L/min / [place] Cardiac Index [ ] L/min/m2 * Thermo-dilution Cardiac Output [ ] L/min / Cardiac Index [ ] L/min/m2 Complications There were no periprocedural complications identified. Iris Vogt MD August 18, 2016 15:57
[2016-08-18] MEDS ORDERED: Nitroglycerin 2% 1 Gm Ointment TOPICAL ONE (16:30)
[2016-08-18] MEDS ORDERED: Atropine 1 mg/10 mL (Code) Syringe IVPUSH PRN (16:35)
[2016-08-18] MEDS ORDERED: 0.9% Sodium Chloride 250 ML BOLUS IV PRN (16:35)
[2016-08-18] MEDS ORDERED: 0.9% Sodium Chloride 400 ML (4 HRS) IV ONE (16:35)
[2016-08-18] MEDS: MeTOProlol XL 25 mg ER24 Tablet PO SCH (16:41)
[2016-08-18] MEDS: PILOCARPINE 5 MG PO SCH ×2 (17:50→22:52)
[2016-08-18] MEDS ORDERED: Furosemide 10 mg/mL 2 mL Inj IVPUSH ONE (19:00)
[2016-08-18 19:42] LABS: Creatine Kinase 51 U/L (21-232)
[2016-08-18 19:49] LABS: TROPONIN T 0.035 ug/L (0.0-0.011)
[2016-08-18] MEDS: Heparin 5,000 Unit/mL Inj IVPUSH PRN (20:00)
[2016-08-18] MEDS: Hydroxychloroqine 200 mg Tablet PO SCH (20:01)
[2016-08-18] MEDS: Polyethylene Glycol (PEG) 17 Gm Powder PO SCH (20:01)
[2016-08-19] VITALS (19 sets, daily range): BP systolic 95–137; BP diastolic 46–64; PULSE 79–91; RESP 18–28; O2SAT 90–99
[2016-08-19] MEDS: Heparin 5,000 Unit/mL Inj IVPUSH PRN ×4 (02:20→21:44)
--- NOTE | 2016-08-19 05:49 | NUR ---
Heparin/Chest Pain/Right Radial Site Patient continues on heparin gtt; current rate 1150 units/hour. Patient is sleeping off and on, but reports "severe" chest pain whenever he wake up. PRN morphine given per orders; patient does not endorse an improvement in his pain with the morphine, but does return to sleep shortly after each dose. Frequent vital sign and pulse checks continue per cardiology orders. Radial pulses 2+ bilaterally. TR band deflated slowly per orders. Minimal old sanguineous drainage present at site with no new drainage noted over the course of the shift.
[2016-08-19] MEDS ORDERED: Furosemide 10 mg/mL 2 mL Inj IV ONE (06:30)
[2016-08-19 06:32] LABS: BASOPHILS % (AUTO) 0.2 % (0-3); EOSINOPHILS % (AUTO) 0.3 % (0-5); MONOCYTES % (AUTO) 12.5 % (4-12); Mean Corpuscular Hemoglobin 31.6 pg (27.0-35.0); Mean Corpuscular Volume 97.9 fL (81-100); NEUTROPHILS % (AUTO) 78.8 % (40-74); Platelet Count 170 bil/L (150-400)
[2016-08-19] MEDS: PILOCARPINE 5 MG PO SCH ×4 (06:40→20:00)
--- NOTE | 2016-08-19 08:15 | PCM.PNMED ---
Subjective Date of Service August 19, 2016 Subjective He still had a fair amount of pain overnight. His Nitropaste had to be stopped because of low blood pressure. He has a variety of pains including precordial and left shoulder. The left shoulder does increase with any movement. No associated nausea, diaphoresis, or vomiting. His right arm is free of pain or cyanosis. He did have a brachial artery retrograde dissection with a catheterization attempt yesterday. No other overnight events. Exam Vital Signs Vital Sign - Last Date Time Temp Pulse Resp B/P Pulse Ox O2 Delivery O2 Flow Rate FiO2 08/19/16 06:31 86 28 106/46 08/19/16 04:44 Supplement Oxygen 08/19/16 03:17 37.2 97 2.00 Intake and Output 08/18/16 08/18/16 08/19/16 Cumulative From/Thru 15:00 23:00 07:00 08/18/16 07:58 - 08/19/16 06:27 Intake Total 246 ml 456 ml 702 ml Output Total 275 ml 950 ml 0 ml 1225 ml Balance -275 ml -704 ml 456 ml -523 ml Intake Oral 0 ml 200 ml 200 ml IV Total 246 ml 256 ml 502 ml Output Urine Total 275 ml 950 ml 0 ml 1225 ml # Bowel Movements 0 0 Exam Alert and oriented -3, no distress. Fluent speech Anicteric sclera. Lungs are clear with normal rate and effort Heart is regular without murmur gallop or rub Abdomen soft nontender, protuberant Extremities are free of edema. Skin is free of rash or lesions. Right wrist difficult to palpate radial pulses, good cap refill on hand. The hands appear symmetric and are not cyanotic on either side. IVs and Medications Medications Reviewed: Medications were reviewed in detail Lab and Diagnostics Result Diagram: 08/19/1662408/19/16624 X-Rays, CTs and MRIs PROCEDURE: X-RAY CHEST ONE VIEW, PORTABLE IMPRESSION: Bibasilar pneumonia. Follow up plain films of the chest are recommended to ensure resolution, and to exclude underlying or central malignancy. Approved by: Jennie Lopez M.D. on 08/18/2016 at 8:44 12-lead ECG RBBB, increased RI interval, diffuse ST depression Cardiac Echo Impressions Echocardiogram Report Interpretation Summary 1) Mild concentric left ventricular hypertrophy with normal size and moderately reduced systolic function (EF 35-40%). 2) Mid to apical anterolateral wall, mid to apical anterior wall, and the entire apex have severe hypokinesis/akinesis. The posterolateral wall is also hypokinetic. 3) Normal right ventricular size and function. 4) Moderate mitral regurgitation present. 5) Compared to the Echo done 06/17/2014, LV function has dropped from normal to 35-40% and wall motion abnormalities in the LAD territory are new on today's study. Findings consistent with ischemic cardiomyopathy. Reading Physician:12: 03 PM Assessment & Plan Mr. Jorge Nielson is an 81 year old man with history of peripheral vascular disease with a left superficial femoral artery stent who presented to the emergency department for chest pain. Non-ST elevation myocardial infarction, acute, present on admission, active. - Pt is without any known coronary artery disease and presented with atypical chest pain with associated dyspepsia. EKG shows diffuse ST depression and pt has an elevated troponin level. Echocardiogram showed a decreased EF (35-40%) with mid to apical anterolateral and apical hypokinesis/akinesis, and moderate mitral regurgitation. He does not have signs of a DVT and does not report recent immobility or surgery. - CXR showed poor inspiratory effort with findings suggestive of possible pulmonary edema. Pt does not have fever, chills, symptoms suggestive of an upper respiratory infection, or a cough. He is afebrile and does not have a leukocytosis, and therefore, will not initiate antibiotics at this time. - LDL 77, HDL 51 - HgbA1c pending - Procalcitonin within normal limits - Strep pneumo and legionella antigens negative - Pt was given a full aspirin in the emergency department - Nitroglycerin sublingual as needed for chest pain - IV morphine 4 mg every 30 minutes as needed for chest pain - Nitroglycerin paste 1 inch applied today - EKG as needed for chest pain - Aspirin 81 mg daily, atorvastatin 40 mg at bedtime, metoprolol succinate 25 mg once daily, and lisinopril 2.5 mg once daily - Cardiology consulted and following. Their time and recommendations are appreciated. - Pt proceeded to cardiac dental laboratory manager for a left heart catheterization with coronary angiogram, which was complicated by an artery dissection as below. Coronary angiogram was not obtained. - One dose of Lasix 20 mg once for pulmonary edema - Repeat chest x-ray tomorrow morning The patient has low-level troponin elevations. He appears clinically stable. No arrhythmia or hypotension. The patient will continue on medical management pending cardiology evaluation this morning. 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 - Frequent monitoring of right radial pulse - Continue heparin and follow clinically. Acute renal failure, new. Etiology of this is unclear. We will hold the new dose of lisinopril and follow carefully. We will avoid any nephrotoxic medications. Urine tract infection, POA. We will use ceftriaxone empirically. There is a question of infiltrate on chest x-ray as well we will follow this clinically. Peripheral vascular disease, chronic. - Status post stent to left superficial femoral artery in 2013 - Start aspirin and statin as above Essential hypertension, chronic. - Hold home hydrochlorothiazide for now due to new metoprolol succinate and lisinopril - Monitor blood pressure History of anal squamous cell carcinoma in remission. - Pt has urethral stricture as a result and self-caths himself every morning - He also has chronic fecal incontinence unless he takes Miralax every evening - Continue pt's daily self-caths and Miralax scheduled Seasonal allergies and rash, chronic. - Continue cetirizine - Continue lotion and triamcinolone cream Sjgren's disease, chronic. - Continue home pilocarpine and hydroxychloroquine Restless legs syndrome, chronic. - Continue home gabapentin Polymyalgia rheumatica, chronic. - Continue home prednisone Hypothyroidism, chronic. - TSH within normal limits - Continue home levothyroxine Acetaminophen as needed for pain or fever. Maalox as needed for heartburn. Zofran as needed for nausea or vomiting. High risk medications: Heparin drip Patient is admitted under inpatient status with expected length of stay greater than 2 midnights due to severity of presenting symptoms, risk of adverse event, and complexity of treatment plan. CODE STATUS: FULL CODE VTE Prophylaxis: Other (heparin) Resuscitation Status: CPR: Attempt Resuscitation Chevy Rosado MD August 19, 2016 08:15
[2016-08-19] MEDS ORDERED: [UNRECOGNIZED DRUG - REMARK] PO SCH (08:30)
[2016-08-19] MEDS ORDERED: CERAMIDES EXT SCH (08:30)
[2016-08-19] MEDS: Hydroxychloroqine 200 mg Tablet PO SCH ×2 (08:51→20:00)
[2016-08-19] MEDS: Mineral Oil-Petroltum 120 Gm Cream TOPICAL SCH (08:51)
[2016-08-19] MEDS: MeTOProlol XL 25 mg ER24 Tablet PO SCH (08:51)
[2016-08-19] MEDS: predniSONE 5 mg Tablet PO SCH (08:51)
[2016-08-19] MEDS ORDERED: LidocaineVisc 2%:Antacid 1:1 10 mL Syringe PO STA (08:57)
[2016-08-19] MEDS ORDERED: Magnesium Sulf 4 Gm/100 mL H2O 4 GM in IV Premix 1 EACH IV ONE (09:05)
--- NOTE | 2016-08-19 09:31 | PCM.PNCARD ---
Subjective Date of service August 19, 2016 Chief Complaint chest pain History of Present Illness Patient is an 81-year-old man who presents today for chest pain described as sharp in nature and worsening with inspiration and lying flat. The patient states that this began 1-2 days ago. The pain is described as sharp and constant in nature rated at 5 at baseline and up to 8 with deep inspiration. The pain is left sided to right sided across his lower chest and radiates into his neck with the sensation of fullness and sore throat. The patient states that he often has pain substernal into his neck from his Sjgren's and GERD. The pain across his chest is new and different. Patient denies fever or chills or cough. The patient denies any unilateral leg swelling or color changes. The patient describes typical symptoms of chronic orthopnea requiring multiple pillows and states that he does not sleep on his back but on his right side typically. The patient states that he recently started an exercise regimen described as mostly stretching and changed his diet in an attempt to lose weight. The patient was at physical therapy 2 days ago when he began to notice a headache described as bandlike which the patient states is a chronic 20 year condition due to a nerve behind his ear. The patient is a physical therapy to attempt to get back into a more routine golf game. The patient has a logging shovel operator in [place] which he does not know the name of at this time. He was last seen by his logging shovel operator for routine evaluation for possible lower extremity bypass graft procedure. The patient denies any recent surgical procedures or prolonged immobility. The patient has a history of anal squamous carcinoma treated with combined modality therapy, 5-FU/mitomycin-C and radiation completed June 14, 2005 without recurrence. The patient states that he received three doses of nitro in the ED which did not seem to help his chest pain. He stated that he received three doses of morphine in the ED and it seems to have helped the chest pain across his chest but not the pain radiating into his neck. Subjective: Patient feels better overall today, especially getting GI cocktail. His throat and upper chest pain have resolved and his middle chest pain is better with pain medications. Radial pulses equal bilaterally after having a iatrogenic left axillary/subclavian artery retrograde dissection during cath 08/18/2016. PROBLEM LIST: # Troponin elevation: normal CK and CK-MB # Cardiomyopathy, likely ischemic # FRANCIE # UTI # Sjogren syndrome 11-point ROS: 11-point Review of Systems negative Exam Vital Signs Vital Sign - Last Date Time Temp Pulse Resp B/P Pulse Ox O2 Delivery O2 Flow Rate FiO2 08/19/16 08:44 Supplement Oxygen 08/19/16 08:44 86 20 116/58 2.00 08/19/16 03:17 37.2 97 Intake and Output 08/18/16 08/18/16 08/19/16 Cumulative From/Thru 15:00 23:00 07:00 08/18/16 07:58 - 08/19/16 06:27 Intake Total 246 ml 456 ml 702 ml Output Total 275 ml 950 ml 0 ml 1225 ml Balance -275 ml -704 ml 456 ml -523 ml Intake Oral 0 ml 200 ml 200 ml IV Total 246 ml 256 ml 502 ml Output Urine Total 275 ml 950 ml 0 ml 1225 ml # Bowel Movements 0 0 Additional Information: General appearance: Elderly man lying in bed, in no apparent distress, well- nourished, pleasant, cooperative HEET: Normocephalic atraumatic, no scleral icterus, tongue midline, mucous membranes moist Neck: supple, very mild JVD Cardiovascular: Hyperdynamic heart sounds, RRR, normal S1 and normal S2, 2/6 systolic ejection murmur at apex radiating to axilla, no rubs/gallops, PMI nondisplaced, very mild JVD, no peripheral edema Respiratory: Moderate crackles noted in left lower lung shoemaker both axillary and posterior, decreased air movement right lower lung shoemaker with some crackles in the mid lung shoemaker, no wheezing Abdomen: Soft, nontender, distended, + bowel sounds Extremities: Capillary refill slightly better in left versus right upper extremity, good pulses in radial artery bilaterally; no lower extremity edema noted Neuro: Alert, no facial droop, tongue midline, intact sensation in right upper extremity Psych: appropriate affect Lab and Diagnostics Labs Troponin initially 0.031, 0.033, 0.035, 0.034, CK 74/CK-MB 1.8, CK 51/CK-MB 1.2 , WBC 11.7 with neutrophil predominance 78.8%, procalcitonin 0.2 Result Diagram: 08/19/1625 08/19/16 0625 X-Rays, CTs and MRIs Repeat CXR shows a dorsally rotated film compared to the day prior but a possible worsening of the bilateral lower pleural effusions versus a possible pneumonia 12-lead ECG Sinus rhythm with first-degree heart block, right bundle branch block and nonspecific downsloping ST depression changes in anterior septal leads with no significant changes noted when compared to prior ECG studies Additional Diagnostics: Prior CATHETERIZATION LABORATORY REPORT IMPRESSION: Mild diffuse atherosclerotic plaque without major obstructive lesions with normal ventricular function. Dr. Hough will proceed with diagnostic lower extremity angiography and intervention as appropriate. Electronically Authenticated by: Ceasar Perez MD 11/22/2011 11:28:37 [place] Echocardiogram Report Interpretation Summary 1) Mild concentric left ventricular hypertrophy with normal size and moderately reduced systolic function (EF 35-40%). 2) Mid to apical anterolateral wall, mid to apical anterior wall, and the entire apex have severe hypokinesis/akinesis. The posterolateral wall is also hypokinetic. 3) Normal right ventricular size and function. 4) Moderate mitral regurgitation present. 5) Compared to the Echo done 06/17/2014, LV function has dropped from normal to 35-40% and wall motion abnormalities in the LAD territory are new on today's study. Findings consistent with ischemic cardiomyopathy. Reading Physician:12: 03 PM Assessment & Plan Assessment 81-year-old man with past medical history remarkable for peripheral arterial disease in lower left extremity who presents with chest pain worse on inspiration 2 days. # Chest pain and NSTEMI: patient has typical and atypical features. Cardiology was consulted from the with mildly elevated troponin. Normal CK and CK-MB argue against acute coronary syndrome but it is possible that the patient had CT few days prior to arrival. 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 Dissection has been managed conservatively and with heparin and patient has done well with equal symmetric radial artery pulses and equal BP in both arms. Per conversation with on-call logging shovel operator (Dr. Skinny Marcelino) at [place] on 08/18, JESSICA performed last year showed an EF of 50% and along with moderate mitral regurgitation. Plan: - obtain records from [place] including echo and cath reports - Continue aspirin 81mg daily - Continue heparin gtt for 24 hours (use cath time as start time) - Sublingual nitroglycerin and IV morphine available PRN - however he states that these medications did not really seem to help in the ED - GI cocktail ordered, and helped relieve throat pain, likely a complication from the patient's Sjogrens disease. - Repeat troponins show a bump from 0.034 to 0.07 which is likely a complication due to poor renal clearance with the development of a FRANCIE - Continue atorvastatin 40mg qhs - Defer coronary angiography to outpatient # Systolic heart failure likely from ischemic Cardiomyopathy with decreased EF 35-40%: Compared to the Echo done 06/17/2014, LV function has dropped from normal to 35-40% and wall motion abnormalities in the LAD territory are new on study here. Findings consistent with ischemic cardiomyopathy. 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 Very low risk of propagation given retrograde nature. - The patient will be continued on a heparin drip for 24hours (as above) to prophylactically treat possible thrombus due to endothelial injury. # Mitral valve regurgitation: Patient states that this is not new and he is being followed by his logging shovel operator at [place] Dr. Paz. Stable on Echo today. Continue to monitor. # PAD: stable. 07/27/2016 shows an occlusion of the left superficial femoral artery. Management as above in NSTEMI section # Acute kidney injury: Patient's creatinine increased from 0.8 to 1.7 to 1.9. Unclear etiology but etiologies could be small dose lisinopril that the patient received 08/19/2016. He did receive 5cc of contrast 08/19/2016 but this amount is unlikely to cause FRANCIE on day 1. Another possibility could be pyelonephritis as patient does have a UTI. Dehyration possible but less likely as BUN is normal. - Hold lisinopril - Gentle hydration today - Calculate fractional excretion of urea (labs already ordered and pending) - Renal Ultrasound with renal artery Doppler study. # Possible Bilateral Pneumonia: Patient has bilateral lower lobe consolidation read in repeat xray studies as well as a bump in WBC up to 11.7 with neutrophil predominance 78%. Patient denies fever or chills and cough. The patient also may have an urinary tract infectious source with many bacteria noted on UA. - Initiate ceftriaxone IV per primary team - Monitor # Possible UTI: UA shows many bacteria with positive nitrites and 6-10WBC. Dirty catch is less likely given small number of epithelial cells. - Renal Ultrasound with renal artery Doppler study as above for FRANCIE - Antibiotics as above Problems: Pain Evaluation: Pain not Controlled VTE Prophylaxis: Other (heparin) Resuscitation Status: CPR: Attempt Resuscitation Attending Statement I saw, examined, and evaluated the patient with Dr. Mahi Romero on 2016 and agree with the note as above along with my edits. Mahi Romero DO August 19, 2016 09:31 Iris Vogt MD August 19, 2016 11:26 - Monitor Problems: Pain Evaluation: Pain not Controlled VTE Prophylaxis: Other (heparin) Resuscitation Status: CPR: Attempt Resuscitation Attending Statement I saw, examined, and evaluated the patient with Dr. Mahi Romero on 2016 and agree with the note as above along with my edits. Mahi Romero DO August 19, 2016 09:31 Iris Vogt MD August 19, 2016 11:26 Mahi Romero DO August 19, 2016 09:31 Iris Vogt MD August 19, 2016 11:26
--- NOTE | 2016-08-19 09:53 | NUR ---
Pain management md ordered gi cocktail for chest pain. pt reported effective in relieving pain/discomfort of throat and upper chest. MD informed. Morphine 4mg given for overall chest pain. will continue to monitor.
[2016-08-19 10:11] LABS: OSMOLALITY, URINE 346 mOs/kH2O (250-1200)
--- NOTE | 2016-08-19 10:29 | DRSVH ---
PROCEDURE: X-RAY CHEST ONE VIEW, PORTABLE ([id number]) INDICATIONS: chest pain, ?pulmonary edema TECHNIQUE: One view of the chest was acquired. COMPARISON: [facility], CR, XR CHEST 1VW (PORTABLE), 08/18/2016, 8:28. FINDINGS: Surgical changes and devices: None. Lungs and pleura: Bibasilar scarring or atelectasis accentuated by a shallow inspiration. Small pleur al effusions.. Mediastinum: Prominent cardiac mediastinal contours.. Bones and chest wall: No suspicious bony lesions. Overlying soft tissues appear unremarkable. 1. IMPRESSION: Bibasal or pulmonary opacities most consistent with pneumonia or atelectasis accentuat ed by shallow inspiration. Associated small pleural effusions. 2. Prominent pulmonary venous vascularity although dilation is limited by shallow inspiration and por table technique. Dictated by: Alex Levin M.D. on 08/19/2016 at 10:25 Approved by: Alex Levin M.D. on 08/19/2016 at 10:27
[2016-08-19] MEDS: Heparin 25K Unit/500mL 0.45 NS 25,000 UNIT in IV Premix 1 EACH IV SCH (11:06)
[2016-08-19 11:09] LABS: Creatine Kinase 139 U/L (21-232)
[2016-08-19 11:11] LABS: TROPONIN T 0.071 ug/L (0.0-0.011)
--- NOTE | 2016-08-19 13:27 | DRSVH ---
PROCEDURE: X-RAY ACUTE ABDOMINAL SERIES ([id number]) INDICATIONS: mild abd pain, bloating TECHNIQUE: One view chest and two views of the abdomen were acquired. COMPARISON: [facility], CR, XR ABD ACUTE SERIES 3VW, 11/23/2015, 7:43. FINDINGS: Surgical changes and devices: None. Chest: Stable bibasilar pulmonary opacities with associated pleural effusions. Enlargement of the ca rdia style contours. Abdomen: No free intraperitoneal gas. There is intraluminal gas throughout the small bowel and colon with air-fluid levels in the ascending colon. No abnormal calcifications. Age-appropriate degenerativ e changes in the osseous structures with left hip bipolar arthroplasty. Right lower quadrant surgical clips. Bones: No suspicious bony lesions. IMPRESSION: 1. Stable bibasilar infection and/or atelectasis with associated pleural effusions. 2. Gas and fluid-filled loops of small bowel may represent an adynamic ileus. Early small bowel obstr uction is possible and could be confirmed with an abdomen and pelvis CT if needed. 3. Findings discussed via telephone with the patient's referring clinician at 1:15 PM on August 19, 2016 . Dictated by: Alex Levin M.D. on 08/19/2016 at 13:18 Approved by: Alex Levin M.D. on 08/19/2016 at 13:25
[2016-08-19] MEDS: cefTRIAXone Inj 1,000 MG in Dextrose 5% Minibag Plus 50 ML IV SCH (14:31)
--- NOTE | 2016-08-19 14:58 | DRSVH ---
PROCEDURE: US RENAL WITH ARTERIES DUPLEX DOPPLER SONOGRAM, LIMITED INDICATIONS: ARF TECHNIQUE: Real time scanning was performed of both kidneys, followed by Color and pulsed Doppler in terrogation of the renal vessels. COMPARISON: None. FINDINGS: Aortic peak systolic velocity: 41 cm/s. Right side: Woodard-scale imaging: Kidney is 12.2 cm long; renal cortical thickness is 1.3 cm. No hydronephrosis. No nephrolithiasis. Renal cortex is normal in echogenicity. No suspicious solid renal masses. Proximal renal artery peak systolic velocity: Obscured. Mid renal artery peak systolic velocity: Obscured. Distal renal artery peak systolic velocity: Obscured. Renal vein: Obscured. Peak renal/aortic ratio (RAR): Not calculated. Left side: Woodard-scale imaging: Kidney is 13.6 cm long; renal cortical thickness is 1.2 cm. No hydronephrosis. No nephrolithiasis. Renal cortex is normal in echogenicity. No suspicious solid renal masses. Proximal renal artery peak systolic velocity: Obscured. Mid-renal artery peak systolic velocity: Obscured . Distal renal artery peak systolic velocity: Obscured. Renal vein: Obscured. Peak renal/aortic ratio (RAR): Not calculated . IMPRESSION: Exam is severely degraded due to bowel gas and the patient's body habitus. Renal arteries and veins c ould not adequately delineated for vascular measurements. Dictated by: Alex Levin M.D. on 08/19/2016 at 14:54 Approved by: Alex Levin M.D. on 08/19/2016 at 14:57
[2016-08-19] MEDS ORDERED: 0.9% Sodium Chloride 1,000 ML IV SCH (15:05)
--- NOTE | 2016-08-19 15:19 | NUR ---
Pain management/ constipation. pt continues to report moderate to severe left shoulder pain, stating lower chest pain has dissipated. pt noted to be resting quietly most of time, and sleeping intermittently. Oxycodone given for improved pain management. will follow up for effectiveness. pt noted to have rounded abdomen, reporting distention. Pt able to pass gas, no stool. scheduled bowel meds given per md order. PRN senna/brittany given per md order. Pt up to bsc multiple times throughout shift. will continue to monitor. Addendum: 08/19/16 at 1549 by JULIOCESAR CORNEJO RN moderate effectiveness in pain control after oxycodone. pt states morphine is more effective. Pt up to bsc, continues to pass only gas. pt requesting coffee to stimulate bowels. Approved by cardiology. awaiting effectiveness.
[2016-08-19] MEDS: Polyethylene Glycol (PEG) 17 Gm Powder PO SCH (20:00)
[2016-08-20] VITALS (8 sets, daily range): BP systolic 120–151; BP diastolic 52–94; PULSE 81–98; RESP 20–23; O2SAT 91–96
--- NOTE | 2016-08-20 04:34 | NUR ---
Pain Management/Heparin gtt Patient reporting moderate throat and shoulder pain at evening med pass. Oxycodone 5mg given per orders. Patient sleeping for remainder of shift; rouses easily for care. No additional reports of pain. Heparin gtt infusing at 1325 units per hour. No signs of abnormal bleeding. Continue to monitor.
[2016-08-20] MEDS: PILOCARPINE 5 MG PO SCH ×4 (05:54→20:47)
[2016-08-20] MEDS: predniSONE 5 mg Tablet PO SCH (08:42)
[2016-08-20] MEDS: Hydroxychloroqine 200 mg Tablet PO SCH ×2 (08:42→20:46)
[2016-08-20] MEDS: MeTOProlol XL 25 mg ER24 Tablet PO SCH (08:42)
[2016-08-20] MEDS: Mineral Oil-Petroltum 120 Gm Cream TOPICAL SCH (08:43)
[2016-08-20] MEDS: Heparin 25K Unit/500mL 0.45 NS 25,000 UNIT in IV Premix 1 EACH IV SCH (09:25)
[2016-08-20 10:27] LABS: TROPONIN T 0.024 ug/L (0.0-0.011)
[2016-08-20 10:38] LABS: Creatine Kinase 293 U/L (21-232)
--- NOTE | 2016-08-20 10:45 | NUR ---
MELA Signed @ 1013AM
[2016-08-20] MEDS: cefTRIAXone Inj 1,000 MG in Dextrose 5% Minibag Plus 50 ML IV SCH (12:16)
--- NOTE | 2016-08-20 12:48 | PCM.PNCARD ---
Subjective Date of service August 20, 2016 Chief Complaint chest pain History of Present Illness 81 yo M h/o sjogren syndrome and mitral regurgitation admitted with chest pain. Subjective: Patient feels much better from chest pain standpoint. He wants to know when he can go home. PROBLEM LIST: # Chest pain, atypical: Troponin elevation with normal CK and CK-MB # Cardiomyopathy, probably ischemic # FRANCIE # UTI # Sjogren syndrome Exam Vital Signs Vital Sign - Last Date Time Temp Pulse Resp B/P Pulse Ox O2 Delivery O2 Flow Rate FiO2 08/20/16 08:35 36.7 89 23 120/52 92 Room Air 08/20/16 03:27 2.00 Intake and Output 08/19/16 08/19/16 08/20/16 Cumulative From/Thru 14:59 22:59 06:59 08/18/16 07:58 - 08/20/16 06:10 Intake Total 651 ml 1041 ml 472 ml 2866 ml Output Total 500 ml 500 ml 2225 ml Balance 651 ml 541 ml -28 ml 641 ml Intake Oral 520 ml 200 ml 920 ml IV Total 651 ml 521 ml 272 ml 1946 ml Output Urine Total 500 ml 500 ml 2225 ml # Voids 3 3 # Bowel Movements 0 General appearance: Elderly man lying in bed, in no apparent distress, well- nourished, pleasant, cooperative HEET: Normocephalic atraumatic, no scleral icterus, tongue midline, mucous membranes moist Neck: supple, no JVD Cardiovascular: Hyperdynamic heart sounds, RRR, normal S1 and normal S2, 2/6 systolic ejection murmur at apex radiating to axilla, no rubs/gallops, PMI nondisplaced, no peripheral edema Respiratory: Fair aeration, coarse b/l Abdomen: Soft, nontender, distended, + bowel sounds Extremities: Capillary refill slightly better in left versus right upper extremity, good pulses in radial artery bilaterally; no lower extremity edema noted Neuro: Alert, no facial droop, tongue midline, intact sensation in right upper extremity Psych: appropriate affect Lab and Diagnostics Result Diagram: 08/20/16 0230 08/20/16 0230 X-Rays, CTs and MRIs Echocardiogram 08/18/2016: 1) Mild concentric left ventricular hypertrophy with normal size and moderately reduced systolic function (EF 35-40%). 2) Mid to apical anterolateral wall, mid to apical anterior wall, and the entire apex have severe hypokinesis/akinesis. The posterolateral wall is also hypokinetic. 3) Normal right ventricular size and function. 4) Moderate mitral regurgitation present. 5) Compared to the Echo done 06/17/2014, LV function has dropped from normal to 35-40% and wall motion abnormalities in the LAD territory are new on today's study. Findings consistent with ischemic cardiomyopathy. Assessment & Plan Assessment 81-year-old man with past medical history remarkable for peripheral arterial disease in lower left extremity who presents with chest pain worse on inspiration 2 days. # Chest pain and NSTEMI: patient has typical and atypical features. Cardiology was consulted from the with mildly elevated troponin. Normal CK and CK-MB argue against acute coronary syndrome but it is possible that the patient had TX few days prior to arrival. 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 Dissection has been managed conservatively and with heparin and patient has done well with equal symmetric radial artery pulses and equal BP in both arms. Per conversation with on-call outreach specialist (Dr. Skinny Marcelino) at [facility] on 08/18, JESSICA performed last year showed an EF of 50% and along with moderate mitral regurgitation. Plan: - obtain records from [facility] including echo and cath reports - Continue aspirin 81mg daily - Stop heparin gtt - Sublingual nitroglycerin and IV morphine available PRN - however he states that these medications did not really seem to help in the ED - GI cocktail ordered, and helped relieve throat pain, likely a complication from the patient's Sjogrens disease. - Decrease atorvastatin from 40mg qhs to 20mg qhs - Defer coronary angiography to outpatient (with Dr. Paz at [facility]) # Systolic heart failure likely from ischemic Cardiomyopathy with decreased EF 35-40%: Compared to the Echo done 06/17/2014, LV function has dropped from normal to 35-40% and wall motion abnormalities in the LAD territory are new on study here. Findings consistent with ischemic cardiomyopathy. Plan: - Continue metoprolol 25mg XL daily - Will avoid lisinopril given FRANCIE that developed after one dose of lisinopril 2.5mg. 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 Very low risk of propagation given retrograde nature. - No need for heparin now - Continue to monitor clinically # Mitral valve regurgitation: Patient states that this is not new and he is being followed by his outreach specialist at [facility] Dr. Paz. Stable on Echo today. Continue to monitor. # PAD: stable. 07/27/2016 shows an occlusion of the left superficial femoral artery. Management as above in NSTEMI section # Acute kidney injury: Patient's creatinine carlyn from 0.8 to 1.9 but now is decreased to 1.49. Unclear etiology but etiologies could be small dose lisinopril that the patient received 08/19/2016. He did receive 5cc of contrast 08/19/2016 but this amount is unlikely to cause FRANCIE on day 1. Another possibility could be pyelonephritis as patient does have a UTI. Dehyration possible but less likely as BUN is normal. Renal US was unremarkable but doppler study was poor quality due to bowel gas - Hold lisinopril - Calculate fractional excretion of urea (labs already ordered and pending) - Consider renal doppler assessment of renal artery as outpatient given patient developed FRANCIE with one dose of lisinopril 2.5mg # UTI: UA shows many bacteria with positive nitrites and 6-10WBC. Dirty catch is less likely given small number of epithelial cells. - Antibiotics per the hospitalist service Problems: Pain Evaluation: Pain not Controlled VTE Prophylaxis: Other (heparin) Resuscitation Status: CPR: Attempt Resuscitation Iris Vogt MD August 20, 2016 12:48
--- NOTE | 2016-08-20 14:57 | NUR ---
Evaluation completed. Please go to "Notes" then click on "Assessments and Notes" (bottom left corner of screen). Then select appropriate discipline tab on top of screen.
--- NOTE | 2016-08-20 15:04 | PCM.PNMED ---
Subjective Date of Service August 20, 2016 Subjective Mr. Jorge iNelson is an 81 year old man with history of peripheral vascular disease with a left superficial femoral artery stent who presented to the emergency department for chest pain. This morning, Mr. Nielson reports that he feels a lot better than when he first came into the hospital. He continues to have left shoulder and neck pain that get worse with movement. He does not have chest pain or dyspnea. He no longer has nausea or vomiting. He had 2 bowel movements this morning. He does not have dysuria. His right arm does not hurt. Exam Vital Signs Vital Sign - Last Date Time Temp Pulse Resp B/P Pulse Ox O2 Delivery O2 Flow Rate FiO2 08/20/16 13:47 36.4 20 151/67 96 Room Air 08/20/16 08:35 89 08/20/16 03:27 2.00 Intake and Output 08/19/16 08/19/16 08/20/16 Cumulative From/Thru 15:00 23:00 07:00 08/18/16 07:58 - 08/20/16 06:10 Intake Total 651 ml 1041 ml 472 ml 2866 ml Output Total 500 ml 500 ml 2225 ml Balance 651 ml 541 ml -28 ml 641 ml Intake Oral 520 ml 200 ml 920 ml IV Total 651 ml 521 ml 272 ml 1946 ml Output Urine Total 500 ml 500 ml 2225 ml # Voids 3 3 # Bowel Movements 0 Exam General: Elderly man in no acute distress, well-developed, well-nourished, appropriately interactive HEENT: Normocephalic, atraumatic. External ears without defect. Anicteric sclerae, moist conjunctivae, and no lid lag. Oropharynx free of erythema and cobble stoning with dry lips. Neck: Supple with full range of motion Cardiovascular: Regular rate and rhythm with III/ systolic ejection murmur that radiates to the neck. No rubs or gallops appreciated. No chest wall tenderness. Bilateral radial pulses intact. Pulmonary: Right lower lung back scattered crackles. No wheezes or rhonchi. Normal respiratory effort with no use of accessory muscles. Abdomen: Bowel tones present. Soft, nontender, nondistended. No hepatosplenomegaly or masses appreciated. Extremities: Chronic venous status changes bilateral lower legs. No clubbing or edema appreciated. Skin: Bilateral upper extremity with scattered excoriations and scars. Scattered actinic keratoses. Diffuse dry skin. Bilateral feet cool to touch. Neurological: Cranial nerves grossly intact. Grossly normal muscle strength, tone, and bulk. No known gait impairment. Psychiatric: Normal mood and affect. Alert and oriented to person, place, and time. IVs and Medications Medications Reviewed: Medications were reviewed in detail Lab and Diagnostics Result Diagram: 08/20/16 02308/20/16 0230 X-Rays, CTs and MRIs PROCEDURE: X-RAY CHEST ONE VIEW, PORTABLE 1. IMPRESSION: Bibasal or pulmonary opacities most consistent with pneumonia or atelectasis accentuated by shallow inspiration. Associated small pleural effusions. 2. Prominent pulmonary venous vascularity although dilation is limited by shallow inspiration and portable technique. Approved by: Alex Levin M.D. on 08/19/2016 at 10:27 PROCEDURE: US RENAL WITH ARTERIES DUPLEX DOPPLER SONOGRAM, LIMITED IMPRESSION: Exam is severely degraded due to bowel gas and the patient's body habitus. Renal arteries and veins could not adequately delineated for vascular measurements. Approved by: Alex Levin M.D. on 08/19/2016 at 14:57 PROCEDURE: X-RAY ACUTE ABDOMINAL SERIES IMPRESSION: 1. Stable bibasilar infection and/or atelectasis with associated pleural effusions. 2. Gas and fluid-filled loops of small bowel may represent an adynamic ileus. Early small bowel obstruction is possible and could be confirmed with an abdomen and pelvis CT if needed. 3. Findings discussed via telephone with the patient's referring clinician at 1: 15 PM on August 19, 2016. Approved by: Alex Levin M.D. on 08/19/2016 at 13:25 12-lead ECG RBBB, increased WI interval, diffuse ST depression Cardiac Echo Impressions Echocardiogram Report Interpretation Summary 1) Mild concentric left ventricular hypertrophy with normal size and moderately reduced systolic function (EF 35-40%). 2) Mid to apical anterolateral wall, mid to apical anterior wall, and the entire apex have severe hypokinesis/akinesis. The posterolateral wall is also hypokinetic. 3) Normal right ventricular size and function. 4) Moderate mitral regurgitation present. 5) Compared to the Echo done 06/17/2014, LV function has dropped from normal to 35-40% and wall motion abnormalities in the LAD territory are new on today's study. Findings consistent with ischemic cardiomyopathy. Reading Physician:12: 03 PM Assessment & Plan Mr. Jorge Nielson is an 81 year old man with history of peripheral vascular disease with a left superficial femoral artery stent who presented to the emergency department for chest pain. Non-ST elevation myocardial infarction, acute, present on admission, stable. - Pt is without any known coronary artery disease and presented with atypical chest pain with associated dyspepsia. EKG showed diffuse ST depression and had an elevated troponin level. Echocardiogram showed a decreased EF (35-40%) with mid to apical anterolateral and apical hypokinesis/akinesis, and moderate mitral regurgitation. He does not have signs of a DVT and did not report recent immobility or surgery. - CXR showed poor inspiratory effort with findings suggestive of possible pulmonary edema. Pt does not have fever, chills, symptoms suggestive of an upper respiratory infection, or a cough. - LDL 77, HDL 51. HgbA1c 5.1 - Procalcitonin, Strep pneumo, and legionella negative - Pt was given a full aspirin in the emergency department - Nitroglycerin and IV morphine 4 mg every 30 minutes as needed for chest pain. EKGs as needed for chest pain - Aspirin 81 mg daily, atorvastatin 20 mg at bedtime, metoprolol succinate 25 mg once daily - Cardiology consulted and following. Their time and recommendations are appreciated. - Pt had gone to left heart catheterization with coronary angiogram. Coronary angiography was unable to be performed due to stenotic and tortuous vasculature and a subsequent complication of retrograde dissection - The patient has low-level troponin elevations. He appears clinically stable. No arrhythmia or hypotension. The patient will continue on medical management pending cardiology evaluation tomorrow morning. 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 - Cardiology consulted as above. - Heparin discontinued - Continue to monitor Acute renal failure, new, improving - Etiology of this is unclear, possibly secondary to new NATHEN inhibitor, urinary tract infection, and/or small amount of contrast given with left heart catheterization as above. - We will hold the new dose of lisinopril and follow carefully. He was given gentle fluids yesterday. - We will avoid any nephrotoxic medications. Urine tract infection, chronicity unknown, present on admission. - Pt is asymptomatic - Blood cultures pending - Urine culture grew Klebsiella pneumoniae sensitive to ceftriaxone - Continue ceftriaxone and will continue a 7-10 day antibiotic course Chronic systolic congestive heart failure, present on admission, stable. - Echocardiogram as above shows EF 35-40% - Aspirin, metoprolol, and statin as above - Hold NAHTEN inhibitor as above due to acute kidney injury - Monitor daily weight and I&Os Peripheral vascular disease, chronic. - Status post stent to left superficial femoral artery in 2013 - Start aspirin and statin as above Essential hypertension, chronic. - Hold home hydrochlorothiazide for now due to new metoprolol succinate - Monitor blood pressure History of anal squamous cell carcinoma in remission. - Pt has urethral stricture as a result and self-caths himself every morning - He also has chronic fecal incontinence unless he takes Miralax every evening - Continue pt's daily self-caths and Miralax scheduled Seasonal allergies and rash, chronic. - Continue cetirizine - Continue lotion and triamcinolone cream Sjgren's disease, chronic. - Continue home pilocarpine and hydroxychloroquine Restless legs syndrome, chronic. - Continue home gabapentin Polymyalgia rheumatica, chronic. - Continue home prednisone Hypothyroidism, chronic. - TSH within normal limits - Continue home levothyroxine Acetaminophen as needed for pain or fever. Maalox as needed for heartburn. Zofran as needed for nausea or vomiting. Disposition: Likely discharge to home tomorrow with close follow up with cardiology and primary care provider. VTE Prophylaxis: Other (heparin) Resuscitation Status: CPR: Attempt Resuscitation Attending Statement The patient was seen and examined together with Dr. Wynn on 08/20/2016 and I agree with the history, exam and plan as outlined in the note above. . Anastasia Wynn DO August 20, 2016 14:36 Fabien Daley MD August 20, 2016 16:14
--- NOTE | 2016-08-20 16:03 | NUR ---
Social Work- initial assessment: Data:See initial assessment. Pt is a 81 y/o male who was admitted on 08/18/16 for ACS per H&P. Pt's insurance is [employer] and PCP is Maurizio Rowland MD. EMR reviewed. Pt's readmission score is 1. SW met with pt and nephew's at bedside, SW role explained. Pt is alert and oriented x3. Pt resides at home with his where he remains independent with ADLs. Pt does not use any DME, but has a cane or fww to use if needed, pt does drive. Pt has no HH or SNF history. 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 SW discussed DPOA/ advanced directive, pt confirms he has completed this, SW encouraged a copy to be brought in. PT has seen pt and recommended home with HH services, pt ambulating 60ft. SW to await MD orders for HH services. SW provided phone number and plan on white board in room. Pt's to provide transport home. SW will continue to follow. Assessment:Pt who would benefit from HH. Plan:Pt to likely discharge home with when medically stable. SW to await MD orders for HH services. F2F in folder. SW will continue to follow. KURT Hernandez Addendum: 08/20/16 at 1609 by FAWAD ABREU SS Amended: Links added.
--- NOTE | 2016-08-20 17:47 | NUR ---
ACTIVITY Patient up in the room w/ PT this afternoon, able to transfer with little difficulty from bed to chair, steady gait noted during transfer. He has been able to transfer w/ SBA from bed to BSC, tolerated well. Remained in chair for approximately 2 hours, then went back to bed. States he's ready to go home tomorrow, and per Dr. Liu, this is likely the plan.
--- NOTE | 2016-08-20 18:41 | NUR ---
Telemetry Update: Afib Patient converted from Sinus Rhythm 80-100s to Afib 80-90s at 18:36. ALONZO canchola.
[2016-08-20] MEDS: Polyethylene Glycol (PEG) 17 Gm Powder PO SCH (20:48)
[2016-08-21 02:47] VITALS: BP 98/55; PULSE 89; RESP 20; O2SAT 95
[2016-08-21 03:34] LABS: BASOPHILS % (AUTO) 0.1 % (0-3); EOSINOPHILS % (AUTO) 1.1 % (0-5); MONOCYTES % (AUTO) 14.5 % (4-12); Mean Corpuscular Hemoglobin 31.3 pg (27.0-35.0); Mean Corpuscular Volume 97.4 fL (81-100); NEUTROPHILS % (AUTO) 76.1 % (40-74); Platelet Count 169 bil/L (150-400)
--- NOTE | 2016-08-21 04:05 | NUR ---
PAIN Patient has been complaining about his back over night. Roxycodone and tylenol given with some relief. Pillow placed between legs and encouraged to reposition for comfort. Patient somewhat anxious about discharge. Up to BSC for BM, refusing miralax at this time. Denies SOB. Will continue to monitor for comfort and safety.
[2016-08-21 04:13] LABS: TROPONIN T 0.018 ug/L (0.0-0.011)
[2016-08-21 04:15] LABS: Creatine Kinase 153 U/L (21-232)
[2016-08-21] MEDS: PILOCARPINE 5 MG PO SCH ×2 (06:22→11:30)
[2016-08-21] MEDS: Hydroxychloroqine 200 mg Tablet PO SCH (08:54)
[2016-08-21] MEDS: MeTOProlol XL 25 mg ER24 Tablet PO SCH (08:54)
[2016-08-21] MEDS: predniSONE 5 mg Tablet PO SCH (08:54)
[2016-08-21] MEDS: Mineral Oil-Petroltum 120 Gm Cream TOPICAL SCH (08:58)
[2016-08-21 09:00] VITALS: BP 130/62; PULSE 81; RESP 18; O2SAT 95
[2016-08-21 09:23] VITALS: PULSE 79
[2016-08-21 10:27] VITALS: BP 133/67; PULSE 77; RESP 18; O2SAT 96
[2016-08-21] MEDS ORDERED: METO25TA99 PO (11:22)
[2016-08-21] MEDS ORDERED: ASPI-973 PO (11:22)
[2016-08-21] MEDS ORDERED: ATOR20TA65 PO (11:22)
[2016-08-21] MEDS ORDERED: NITR0.4T SL (11:22)
[2016-08-21] MEDS: cefTRIAXone Inj 1,000 MG in Dextrose 5% Minibag Plus 50 ML IV SCH (11:43)
[2016-08-21] MEDS ORDERED: LEVO750T39 PO (13:11)
--- NOTE | 2016-08-21 13:14 | PCM.DIMED ---
Anastasia Wynn DO 08/21/16 1055: Discharge Instructions Date of Service August 21, 2016 Dates of Hospitalization August 18, 2016 at 09:42 Discharge Diagnosis Discharge Diagnosis You had a mild heart attack and a bladder infection, and both have been treated with medications. Diet Discharge Diet: Heart Healthy Activity Discharge Activity: Limited until seen by PCP Call your provider Call your provider for: Fever or Chills, Shortness of breath, Bleeding, Chest pain, Excessive diarrhea, Weakness (unilateral) Patient Instructions Patient Instructions Start home health physical therapy twice per week for 4 weeks to improve your functional strength and mobility and to safely navigate at home. For the bladder infection, you will need to continue antibiotics for 4 more days starting tomorrow. Start levofloxacin 750 mg once daily for 4 days. For your heart health, start taking aspirin 81 mg once daily, atorvastatin 20 mg once daily at bedtime, and metoprolol succinate 25 mg once daily in the morning. You have also been given a prescription for nitroglycerin sublingual tablets. You can place one tablet underneath your tongue as needed for chest pain. You can repeat this every 5 minutes up to 3 times maximum for chest pain. If you have chest pain and need to use nitroglycerin, please call 911 or go to the hospital. For your blood pressure, stop taking hydrochlorothiazide, for now, because you have been started on metoprolol succinate 25 mg once daily. You can review your blood pressure medication changes with your primary care provider. Follow up with Dr. Paz, cardiology, at [facility] as soon as possible. Follow up with your primary care provider in 7-10 days. Follow-up Provider: Maurizio Rowland MD Follow-up with PCP in: 1 week Provider: [facility] Follow-up in: Other (with Dr. Paz, cardiology, at [facility] as soon as possible) Fabien Daley MD 08/22/16 1822: Discharge Instructions Attending's Statement The patient was seen and examined together with Dr. Wynn on 08/21/2016 and I agree with the history, exam and plan as outlined in the note above. . Anastasia Wynn DO August 21, 2016 10:55 Fabien Daley MD August 22, 2016 18:22
--- NOTE | 2016-08-21 14:30 | NUR ---
Discharge Pt and were provided education on new medications and things to do at home. All scripts were given to pt as well as informational packets. Telemetry leads were removed, IV was removed. Pt and demonstrated understanding of teaching. Pt left in a wheelchair around 1430 in a wheelchair assisted by a staff member with all personal belongings in hand.
--- NOTE | 2016-08-21 15:07 | NUR ---
Social Work Note: Discharge Note Data& Assessment: EMR reviewed. Per pt is medically ready for discharge. Jorge Nielson is a 81 year old male admitted on 08/18/2016 for ACS. Per pt is medically improved and ready for discharge. PT is recommending Home Health Physical therapy, ILIR received order from to arrange Home Health PT. ILIR met with pt at bedside to discuss Home Health options and confirm discharge plan. SW PROVIDED PT WITH HOME HEALTH LIST FOR PREFERENCES. Pt did not have a preference and agreed to refer to the rotating calender. Referral provided to and accepted by Shelly from [facility] . Copy of F2F placed on pt chart. ILIR confirmed discharge plan with pt Deborah at bedside as well. Pt transporting pt home today. Pt and pt deny any other needs. No other discharge needs identified. All updated and agreeable to plan. Plan: Per pt is medically ready to discharge home via POV with [facility] PT to follow. Pt and pt deny any other needs. No other discharge needs identified. All updated and agreeable to plan. KURT Zepeda
--- NOTE | 2016-08-21 15:12 | NUR ---
Social Work received order from for Home Health PT. ILIR PROVIDED PT WITH HOME HEALTH LIST FOR PREFERENCES. Pt did not have a preference and agreed to refer to the rotating calender. Referral provided to and accepted by Shelly from [facility]. KURT Zepeda
--- NOTE | 2016-08-22 17:27 | PCM.DC.MED ---
Discharge Summary Date of Service August 21, 2016 Dates of Hospitalization Date of Hospital Admission August 18, 2016 at 09:42 Date of Discharge: August 21, 2016 Providers: Admitting Physician: Chevy Rosado MD Primary Care Physician: Maurizio Rowland MD Attending Physician: Chevy Rosado MD Consultations Cardiology: Deferred coronary angiography to outpatient with Dr. Paz at [facility] Procedures XRay, CTs & MRIs PROCEDURE: X-RAY CHEST ONE VIEW, PORTABLE 1. IMPRESSION: Bibasal or pulmonary opacities most consistent with pneumonia or atelectasis accentuated by shallow inspiration. Associated small pleural effusions. 2. Prominent pulmonary venous vascularity although dilation is limited by shallow inspiration and portable technique. Approved by: Alex Levin M.D. on 08/19/2016 at 10:27 PROCEDURE: US RENAL WITH ARTERIES DUPLEX DOPPLER SONOGRAM, LIMITED IMPRESSION: Exam is severely degraded due to bowel gas and the patient's body habitus. Renal arteries and veins could not adequately delineated for vascular measurements. Approved by: Alex Levin M.D. on 08/19/2016 at 14:57 PROCEDURE: X-RAY ACUTE ABDOMINAL SERIES IMPRESSION: 1. Stable bibasilar infection and/or atelectasis with associated pleural effusions. 2. Gas and fluid-filled loops of small bowel may represent an adynamic ileus. Early small bowel obstruction is possible and could be confirmed with an abdomen and pelvis CT if needed. 3. Findings discussed via telephone with the patient's referring clinician at 1: 15 PM on August 19, 2016. Approved by: Alex Levin M.D. on 08/19/2016 at 13:25 ECG 12 Lead RBBB, increased LA interval, diffuse ST depression Cardiac Echo Impression Echocardiogram Report Interpretation Summary 1) Mild concentric left ventricular hypertrophy with normal size and moderately reduced systolic function (EF 35-40%). 2) Mid to apical anterolateral wall, mid to apical anterior wall, and the entire apex have severe hypokinesis/akinesis. The posterolateral wall is also hypokinetic. 3) Normal right ventricular size and function. 4) Moderate mitral regurgitation present. 5) Compared to the Echo done 06/17/2014, LV function has dropped from normal to 35-40% and wall motion abnormalities in the LAD territory are new on today's study. Findings consistent with ischemic cardiomyopathy. Reading Physician:12: 03 PM Brief History From the history and physical performed by Dr. Anastasia Wynn on 08/18/2016: Mr. Jorge Nielson is an 81 year old man with history of peripheral vascular disease with a left superficial femoral artery stent who presented to the emergency department for chest pain that started 10 days ago but changed in quality 2-3 days ago. He states that 2 weeks ago he tried changing his lifestyle by exercising more and eating an all protein diet. He started having intermittent pain across his chest and associated upper back tightness and sore throat that started after exercising. However, for the past 1 day he has had constant retrosternal chest pain that he has never had before. He thought it was related to heartburn so he tried making himself vomit to feel better, which did not help. He also states that it gets worse with talking, with movement including inspiration, and lying flat. He describes it as sharpness that is now radiating into his left axilla. He does not have associated diaphoresis, palpitation, nausea, vomiting, pre-syncopal episode, or leg edema. He does not report dyspnea but has trouble taking a deep breath secondary to pain. He was re -evaluated for his left femoral artery stenosis about 2 weeks ago and was told that he may need surgery for it. He denies any recent surgical procedures or prolonged immobility. 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 He does not have changes in his weight or bowel movements, hematuria, hematochezia, melena, new numbness , focal weakness, fever, chills, nasal congestion, or cough. In the emergency department, he was given 324 mg of aspirin, sublingual nitroglycerin without pain relief, and IV morphine. EKG in the emergency department showed RBBB and ST depression in anteroseptal and lateral leads of 2- 3 mm. His chest x-ray showed possible bibasilar pneumonia, but there was not a clinical concern for pneumonia so antibiotics were not initiated. Cardiology was consulted and recommended initiating a heparin bolus and infusion. Hospital Course Mr. Jorge Nielson is an 81 year old man with history of peripheral vascular disease with a left superficial femoral artery stent who presented to the emergency department for chest pain. Non-ST elevation myocardial infarction, acute, present on admission, stable. - Presented with atypical chest pain with associated dyspepsia. EKG showed diffuse ST depression and had an elevated troponin level. Echocardiogram showed a decreased EF (35-40%) with mid to apical anterolateral and apical hypokinesis/ akinesis, and moderate mitral regurgitation. He does not have signs of a DVT and did not report recent immobility or surgery. - CXR showed poor inspiratory effort with findings suggestive of possible pulmonary edema. Patient did not have fever, chills, symptoms suggestive of an upper respiratory infection, or a cough. - LDL 77, HDL 51. HgbA1c 5.1 - Procalcitonin, Strep pneumo, and legionella negative - He was given a full aspirin in the emergency department.Nitroglycerin and IV morphine were given as needed for chest pain. - Aspirin 81 mg daily, atorvastatin 20 mg at bedtime, metoprolol succinate 25 mg once daily - Cardiology consulted and followed. Their time and recommendations were appreciated. - Patient had gone to left heart catheterization with coronary angiogram. 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 - He appeared clinically stable. No arrhythmias or hypotension. The patient was continued on medical management until he is able to be further evaluated by his primary service station console operator as an outpatient. 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 - Cardiology consulted as above. Urine tract infection, chronicity unknown, present on admission. - Patient was asymptomatic - Blood cultures showed no growth to date - Urine culture grew Klebsiella pneumoniae sensitive to ceftriaxone and levofloxacin - Ceftriaxone given for 3 days IV and discharged with 4 days of levofloxacin to finish a 7 day course. Levofloxacin was chosen because the bacteria was the most sensitive to levofloxacin. Acute renal failure, new, resolved - Etiology of this is unclear, probably secondary to new NATHEN inhibitor - Avoided any nephrotoxic medications and discontinue lisinopril Chronic systolic congestive heart failure, present on admission, stable. - Echocardiogram as above shows ejection fraction of 35-40% - Aspirin, metoprolol, and statin as above - Hold NATHEN inhibitor as above due to acute kidney injury Peripheral vascular disease, chronic. - Status post stent to left superficial femoral artery in 2013 - Started aspirin and statin as above - Will need to follow up with vascular surgery as an outpatient Essential hypertension, chronic. - Held home hydrochlorothiazide for now due to new metoprolol succinate History of anal squamous cell carcinoma in remission. - Pt has urethral stricture as a result and self-catheterization himself every morning - He also has chronic fecal incontinence unless he takes Miralax every evening - Continued patient's daily self-catheterization and Miralax scheduled Seasonal allergies and rash, chronic. - Continued cetirizine - Continued lotion and triamcinolone cream Sjgren's disease, chronic. - Continued home pilocarpine and hydroxychloroquine Restless legs syndrome, chronic. - Continued home gabapentin Polymyalgia rheumatica, chronic. - Continued home prednisone Hypothyroidism, chronic. - TSH within normal limits - Continued home levothyroxine In summary, Mr. Jorge Nielson is an 81 year old man with history of peripheral vascular disease with a left superficial femoral artery stent who presented to the emergency department for atypical chest pain. He was unable to have a coronary angiogram secondary to a retrograde artery dissection, but he was treated with optimal medical therapy for coronary artery disease. He also had a urinary tract infection secondary to Klebsiella pneumoniae and was treated with antibiotics. On day of discharge, his vital signs were stable, he did not have chest pain or right arm pain, and he appeared euvolemic on exam. Exam Vital Signs (Last) Date Time Temp Pulse Resp B/P Pulse Ox O2 Delivery O2 Flow Rate FiO2 08/21/16 11:08 Supplement Oxygen 08/21/16 10:27 36.9 77 18 133/67 96 2.00 Exam General: Elderly man in no acute distress, well-developed, well-nourished, appropriately interactive HEENT: Normocephalic, atraumatic. External ears without defect. Anicteric sclerae, moist conjunctivae, and no lid lag. Oropharynx free of erythema and cobble stoning with dry lips. Neck: Supple with full range of motion Cardiovascular: Regular rate and rhythm with III/ systolic ejection murmur that radiates to the neck. No rubs or gallops appreciated. No chest wall tenderness. Bilateral radial pulses intact. Pulmonary: Clear to auscultation bilaterally with no wheezes, rales, or rhonchi. Normal respiratory effort with no use of accessory muscles. Abdomen: Bowel tones present. Soft, nontender, nondistended. No hepatosplenomegaly or masses appreciated. Extremities: Chronic venous status changes bilateral lower legs. No clubbing or edema appreciated. Skin: Bilateral upper extremity with scattered excoriations and scars. Scattered actinic keratoses. Diffuse dry skin. Bilateral feet cool to touch. Neurological: Cranial nerves grossly intact. Grossly normal muscle strength, tone, and bulk. No known gait impairment. Psychiatric: Normal mood and affect. Alert and oriented to person, place, and time. Test 08/18/16 08:00 08/18/16 10:50 08/18/16 12:50 08/19/16 06:25 Magnesium Level 1.6mg/dL (1.6-2.6) Pro-B-Type Natriuretic Peptide 1427pg/mL (0-486) Triglycerides Level 146mg/dL (0-149) Cholesterol Level 158mg/dL (100-199) LDL Cholesterol, Calculated 77.800mg/dL (0-99) VLDL Cholesterol 29.200mg/dL HDL Cholesterol 51mg/dL (>39) Cholesterol/HDL Ratio 3.10 (0.0-4.4) Hold [place] Top Tube Received (Received) Urine Color Yellow (YELLOW) Urine Appearance Hazy (CLEAR,HAZY) Urine pH 5.0 (5.0-8.0) Urine Specific [place] 1.018 (1.003-1.035) Urine Protein Negativemg/dL (NEG,TRACE) Urine Glucose (UA) Negativemg/dL (NEGATIVE) Urine Ketones Tracemg/dL (NEGATIVE) Urine Occult Blood Negative (NEGATIVE) Urine Nitrite Positive (NEGATIVE) Urine Bilirubin Negative (NEGATIVE) Urine Urobilinogen Normalmg/dL (NORMAL) Urine Leukocyte Esterase Trace (NEGATIVE) Urine RBC 0-2/hpf (0-2) Urine WBC 6-10/hpf (0-5) Urine Epithelial Cells Few/hpf (NONE-MOD) Urine Crystals None seen (NONE SEEN) Urine Bacteria Many/hpf (NONE-FEW) Urine Hyaline Casts None/lpf (NONE) Urine Granular Casts None seen (NONE SEEN) Urine Waxy Casts None seen (NONE SEEN) Urine Red Blood Cell Casts None seen (NONE SEEN) Urine White Blood Cell Casts None seen (NONE SEEN) Urine Mucus None seen (None Seen) Urine Trichomonas None seen (NONE SEEN) Urine Yeast None (NONE SEEN) Urinalysis Comment None Urine Culture Reflexed Indicated Hold Urine Received (Received) Urine Legionella pneumophilia Ag Negative (Negative) Hemoglobin A1c 5.1% (4.8-5.6) Thyroid Stimulating Hormone (TSH) 3.290uIU/mL (0.450-4.500) Total Bilirubin 0.5mg/dL (0.0-1.2) Aspartate Amino Transf (AST/SGOT) 12U/L (0-50) Alanine Aminotransferase (ALT/SGPT) 9U/L (0-44) Alkaline Phosphatase 66U/L (25-160) Total Protein 7.2g/dL (6.4-8.4) Albumin 3.8g/dL (3.4-5.0) Test 08/19/16 09:36 08/19/16 09:46 08/19/16 12:19 08/20/16 08:30 Osmolality 287 (275-300) Urine Osmolality 346mOs/kH2O (250-1200) Urine Random Creatinine 168mg/dL (22-328) Urine Random Sodium 60mEq/L Lactic Acid Level 1.4mmol/L (0.4-2.0) Activated Partial Thromboplast Time 34.5sec (22.8-33.0) Test 08/21/16 02:30 White Blood Count 8.0th/mm3 (3.8-10.1) Red Blood Count 3.48mil/mm3 (4.40-5.80) Hemoglobin 10.9g/dL (13.8-17.2) Hematocrit 33.9% (41.0-50.0) Mean Corpuscular Volume 97.4fL (81-100) Mean Corpuscular Hemoglobin 31.3pg (27.0-35.0) Mean Corpuscular Hemoglobin Concent 32.2% (32.0-37.0) Red Cell Distribution Width 16.5% (12.3-15.4) Platelet Count 169bil/L (150-400) Neutrophils (%) (Auto) 76.1% (40-74) Lymphocytes (%) (Auto) 7.3% (14-46) Monocytes (%) (Auto) 14.5% (4-12) Eosinophils (%) (Auto) 1.1% (0-5) Basophils (%) (Auto) 0.1% (0-3) Sodium Level 137mEq/L (134-144) Potassium Level 3.9mEq/L (3.5-5.2) Chloride Level 97mEq/L (97-108) Carbon Dioxide Level 21mmol/L (18-29) Blood Urea Nitrogen 23mg/dL (8-27) Creatinine 1.04mg/dL (0.76-1.27) Estimat Glomerular Filtration Rate 73mL/min (>59) Glucose Level 97mg/dL (60-99) Calcium Level 9.0mg/dL (8.5-10.1) Total Creatine Kinase 153U/L (21-232) Creatine Kinase MB 1.0ng/mL (0.0-10.4) Creatine Kinase MB % % (0.0-5.0) Troponin T 0.018ug/L (0.0-0.011) Procalcitonin 0.27ng/mL (0.00-0.08) Discharge Medications Discharge Medications Acetaminophen (Acetaminophen) 325 Mg Tablet 650 MG PO BID (Reported) Aspirin (Aspirin) 81 Mg Tablet 81 MG PO DAILY Prescribed by: ANASTASIA WYNN DO Atorvastatin Calcium (Atorvastatin Calcium) 20 Mg Tablet 20 MG PO HS Prescribed by: ANASTASIA WYNN DO Ceramides 1,3,6-11 (Cerave) 453 Gm Cream..g. 1 APPLIC EXT DAILY (Reported) Cetirizine HCl (All Day Allergy) 10 Mg Tab.chew 20 MG PO DAILY (Reported) Hydroxychloroquine Sulfate (Hydroxychloroquine Sulfate) 200 Mg Tablet 200 MG PO BID (Reported) Ibuprofen (Ibuprofen) 200 Mg Capsule 600 MG PO BID (Reported) Levofloxacin (Levofloxacin) 750 Mg Tablet 750 MG PO DAILY Prescribed by: ANASTASIA WYNN DO Levothyroxine (Levothyroxine) 88 Mcg Tablet 88 MCG PO DAILY (Reported) Metoprolol Succinate ER (Metoprolol Succinate ER) 25 Mg Tab.er.24h 25 MG PO DAILY Prescribed by: ANASTASIA WYNN DO Pilocarpine (Pilocarpine) 5 Mg Tablet 5 MG PO QID (Reported) Take every four hours during the day Polyethylene Glycol 3350 (Miralax) 17 Gm Powd.pack 17 GM PO DAILY Prescribed by: LEIDY ABAD DO Prednisone (PredniSONE) 5 Mg Tab 4 MG PO DAILY (Reported) As needed Calcium Carbonate (Tums) 500 Mg Tab.chew 500 MG PO PRN PRN PRN For Epigastric Distress (Reported) Gabapentin (Gabapentin) 300 Mg Capsule 300 MG PO DAILY PRN PRN For Pain ( Reported) Nitroglycerin SL (Nitrostat) 0.4 Mg Tab.subl 0.4 MG SL Q5MIN PRN PRN For Chest Pain IF SBP > 90 Prescribed by: ANASTASIA WYNN, Triamcinolone Acet (Triamcinolone Acetonide Cream) 1 Applic/0.25 Gm Cr 1 APPLIC EXT DAILY PRN PRN For Itching (Reported) to rash affected areas Followup Plan Discharge Diet: Heart Healthy Discharge Activity: Limited until seen by PCP Patient Instructions Start home health physical therapy twice per week for 4 weeks to improve your functional strength and mobility and to safely navigate at home. For the bladder infection, you will need to continue antibiotics for 4 more days starting tomorrow. Start levofloxacin 750 mg once daily for 4 days. For your heart health, start taking aspirin 81 mg once daily, atorvastatin 20 mg once daily at bedtime, and metoprolol succinate 25 mg once daily in the morning. You have also been given a prescription for nitroglycerin sublingual tablets. You can place one tablet underneath your tongue as needed for chest pain. You can repeat this every 5 minutes up to 3 times maximum for chest pain. If you have chest pain and need to use nitroglycerin, please call 911 or go to the hospital. For your blood pressure, stop taking hydrochlorothiazide, for now, because you have been started on metoprolol succinate 25 mg once daily. You can review your blood pressure medication changes with your primary care provider. Follow up with Dr. Paz, cardiology, at [facility] as soon as possible. Follow up with your primary care provider in 7-10 days. Follow-up Provider: Maurizio Rowland MD Follow-up with PCP in: 1 week Provider: [facility] SANDOVAL Follow-up in: Other (with Dr. Paz, cardiology, at [facility] as soon as possible) Time spent Greater than 30 minutes was spent in preparation of discharge with greater than 50% of that time dedicated to patient counseling and coordination of care. . Attending Statement The patient was seen and examined together with Dr. Wynn on 08/21/2016 and I agree with the history, exam and plan as outlined in the note above. . copies to: [facility]; Maurizio Rowland MD, Marissa L DO August 21, 2016 16:48 Fabien Daley MD August 22, 2016 18:25
== END 2016-08-21 15:27 | disposition home health service (06) | DRG 280 ==
LOC: SED 07:50 → PCC 09:42
PROVIDERS: ADMIT Hospitalist; ATTEND Hospitalist
PROC: 4A023N7 Measurement of Cardiac Sampling and Pressure, Left Heart, Percutaneous Approach (ICD-10-PCS; principal; 2016-08-18)
DX: I21.4 Non-ST elevation (NSTEMI) myocardial infarction (principal); I77.76 Dissection of artery of upper extremity; I77.79 Dissection of other specified artery; N39.0 Urinary tract infection, site not specified; I50.22 Chronic systolic (congestive) heart failure; N17.9 Acute kidney failure, unspecified; I73.9 Peripheral vascular disease, unspecified; I10 Essential (primary) hypertension; E03.9 Hypothyroidism, unspecified; G25.81 Restless legs syndrome; K21.9 Gastro-esophageal reflux disease without esophagitis; J30.2 Other seasonal allergic rhinitis; Z85.048 Personal history of other malignant neoplasm of rectum, rectosigmoid junction, and anus; I25.5 Ischemic cardiomyopathy; M35.00 Sjogren syndrome, unspecified; M35.3 Polymyalgia rheumatica; B96.1 Klebsiella pneumoniae [K. pneumoniae] as the cause of diseases classified elsewhere

== ENCOUNTER 2016-11-27 08:23 | Emergency (ER) | payer MEDICARE ==
[2016-11-27] VITALS (7 sets, daily range): BP systolic 114–185; BP diastolic 45–74; PULSE 71–82; RESP 11–18; O2SAT 97–100
[~2016-11-27] VITALS: Ht 180.3 cm; Wt 97.7 kg
[~2016-11-27 08:23] MED LIST changes: +ASPI-973 PO; +ATOR20TA65 PO; -HYDR12.55 PO; +IBUP200C PO; -KETO5DRO80 OD; +LEVO750T39 PO; +METO-386 PO; +NITR0.4T SL; -OFLO5DRO9 OD; -PRED5DRO6 OD
--- NOTE | 2016-11-27 08:28 | ED.REPORT ---
HPI-General Illness Date of Service Nov 27, 2016 ED Provider: Herberth Romulo Patient is an 81 year old male with a hx of peripheral vascular disease, AAA, and HTN who presents to the ED complaining of sharp, L sided chest pain onset 0745 this morning. His pain did not radiate and was a 5/10 in severity. He took nitro with complete relief within 30 seconds without return. Associated symptoms include nausea and malaise. He denies focal weakness, numbness, cough , hematuria, back pain, diaphoresis, itching, bleeding, or any other symptoms. His concrete boom pump operator (Dr. Paz) at [facility] was supposed to call this morning to schedule him for a triple bypass surgery and possibly a valve replacement. His cardiac surgeon is supposed to be Dr. Aguilar. He takes 81mg of ASA daily and took his dose earlier today. Nursing Notes Stated Complaint: SHARP CHEST PAIN Nursing Notes Reviewed: Yes Allergies: Coded Allergies: No Known Allergies (Verified , NONE, 11/19/15) Scheduled Acetaminophen (Acetaminophen) 325 Mg Tablet 650 MG PO BID Aspirin (Aspirin) 81 Mg Tablet 81 MG PO DAILY Atorvastatin Calcium (Atorvastatin Calcium) 20 Mg Tablet 20 MG PO HS Ceramides 1,3,6-11 (Cerave) 453 Gm Cream..g. 1 APPLIC EXT DAILY Cetirizine HCl (All Day Allergy) 10 Mg Tab.chew 20 MG PO DAILY Hydrochlorothiazide (Hydrochlorothiazide) 25 Mg Tablet 25 MG PO DAILY Hydroxychloroquine Sulfate (Hydroxychloroquine Sulfate) 200 Mg Tablet 200 MG PO BID Ibuprofen (Ibuprofen) 200 Mg Capsule 600 MG PO BID Isosorbide MN ER (Isosorbide MN ER) 30 Mg Tab.er.24h 30 MG PO DAILY Levofloxacin (Levofloxacin) 750 Mg Tablet 750 MG PO DAILY Levothyroxine (Levothyroxine) 88 Mcg Tablet 75 MCG PO DAILY Metoprolol Succinate ER (Metoprolol Succinate ER) 25 Mg Tab.er.24h 25 MG PO DAILY Pilocarpine (Pilocarpine) 5 Mg Tablet 5 MG PO QID Take every four hours during the day Prednisone (PredniSONE) 5 Mg Tab 4 MG PO DAILY Scheduled PRN Calcium Carbonate (Tums) 500 Mg Tab.chew 500 MG PO PRN PRN PRN For Epigastric Distress Gabapentin (Gabapentin) 300 Mg Capsule 300 MG PO DAILY PRN PRN For Pain Nitroglycerin SL (Nitrostat) 0.4 Mg Tab.subl 0.4 MG SL Q5MIN PRN PRN For Chest Pain IF SBP > 90 General Time Seen by MD: 08:27 Chief Complaint Chest pain Hx Obtained From: Patient, Spouse Arrived By: Walk-in Sudden in Onset?: Yes Onset Occurred: 31 - 45 minutes ago Location: : Chest Quality: Sharp Severity: Current: Pain level 5 out of 10 Severity: Maximum: No pain Associated with: Reports: Nausea Additional Notes: malaise Pertinent Negative: Pt denies other symptoms Relieved by: Prescription meds Recent Healthcare: Recent doctor visit Past Medical History Past Medical History seasonal allegies restless leg syndrome History of treatment of left ureteral stricture and ureteral calculus July 29, 2013. Left-sided pleural-based spiculated mass, thought to be benign in nature, per comments below. History of total body pruritic rash, followed by Dr. Hale and Dr. Ponce of Allergy. Not thought to be paraneoplastic despite his past cancer history. 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 Urethral stricture. Bilateral femoral angiography with runoff with percutaneous intervention on totally occluded left superficial femoral artery, Dr. Hough, November 25, 2013. Thyroid disease AAA Diverticulitis Chronic back pain BPH SCC Reports: Cancer, GERD, Hypertension Past Surgical History peripheral vascular disease with stents in left leg Primary repair of umbilical hernia, Dr. Park, February 25, 2014. L hip replacement Kidney stone extraction hemorroid surg Reports: Appendectomy, Cataract surgery, Tonsillectomy Family History non-contributory Smoking History Never Smoker Social History Other Social History: Ambulatory Status Independent Review of Systems Full Review of Systems Constitutional: Reports: Malaise Respiratory: Denies: Non-productive cough Cardiovascular: Reports: Chest pain GI: Reports: Nausea Male: Denies Hematuria Musculoskeletal: Denies: Back pain Hematologic: Denies Bleeding Skin: Denies Diaphoresis Allergy / Immune: Denies: Itching Neurologic: Denies: Focal weakness, Numbness Complete sys rev & neg: except as marked. Physical Exam Nursing note and vitals reviewed. Constitutional: Well-developed, well-nourished. Not diaphoretic. Head: Normocephalic and atraumatic. Mouth/Throat: Oropharynx is clear and moist. No oropharyngeal exudate. Eyes: EOM are normal. Pupils are equal, round, and reactive to light. Neck: Supple, no tracheal deviation. Cardiovascular: Normal rate, regular rhythm. Equal and intact distal pulses throughout. 3/6 Systolic ejection murmur. Good peripheral perfusion. Pulmonary/Chest: Effort normal and breath sounds normal. No respiratory distress. Abdominal: Soft. No distension. There is no tenderness, rebound, or guarding. Bowel sounds present. Musculoskeletal: Range of motion grossly intact, moving all extremities. No edema or tenderness appreciated. Neurological: AOx3. Grossly nonfocal exam. Strength and sensation intact and equal to bilateral upper and lower extremities. Skin: Warm and dry, no rashes or pallor appreciated. Psychiatric: Appropriate mood and affect. Behavior appears normal. Vital Signs Vital Signs Date Time Temp Pulse Resp B/P Pulse Ox O2 Delivery O2 Flow Rate FiO2 11/27/16 15:09 81 12 160/64 98 Room Air 11/27/16 13:44 74 18 168/61 99 Room Air 11/27/16 12:45 73 18 145/67 99 Room Air 11/27/16 11:30 71 17 114/74 99 Room Air 11/27/16 09:03 71 17 138/45 97 11/27/16 08:39 36.0 77 13 175/58 99 Nasal Cannula 2 11/27/16 08:28 82 11 185/72 100 Interpretation & Diagnostics Lab Results Interpretation Result Diagram: 11/27/16 0830 11/27/16 0830 Test 11/27/16 08:30 11/27/16 13:40 White Blood Count 6.5th/mm3 (3.8-10.1) Red Blood Count 3.93mil/mm3 (4.40-5.80) Hemoglobin 12.1g/dL (13.8-17.2) Hematocrit 37.9% (41.0-50.0) Mean Corpuscular Volume 96.4fL (81-100) Mean Corpuscular Hemoglobin 30.8pg (27.0-35.0) Mean Corpuscular Hemoglobin Concent 31.9% (32.0-37.0) Red Cell Distribution Width 17.0% (12.3-15.4) Platelet Count 145bil/L (150-400) Neutrophils (%) (Auto) 59.2% (40-74) Lymphocytes (%) (Auto) 25.4% (14-46) Monocytes (%) (Auto) 10.6% (4-12) Eosinophils (%) (Auto) 2.5% (0-5) Basophils (%) (Auto) 0.6% (0-3) Sodium Level 142mEq/L (134-144) Potassium Level 4.5mEq/L (3.5-5.2) Chloride Level 105mEq/L (97-108) Carbon Dioxide Level 24mmol/L (18-29) Blood Urea Nitrogen 17mg/dL (8-27) Creatinine 0.74mg/dL (0.76-1.27) Estimat Glomerular Filtration Rate 108mL/min (>59) Glucose Level 93mg/dL (60-99) Calcium Level 8.6mg/dL (8.5-10.1) Magnesium Level 1.9mg/dL (1.6-2.6) Total Bilirubin 0.4mg/dL (0.0-1.2) Aspartate Amino Transf (AST/SGOT) 16U/L (0-50) Alanine Aminotransferase (ALT/SGPT) 14U/L (0-44) Alkaline Phosphatase 82U/L (25-160) Total Protein 7.0g/dL (6.4-8.4) Albumin 4.0g/dL (3.4-5.0) Lipase 37U/L (13-60) Hold [place] Top Tube Received (Received) Troponin T < 0.010ug/L (0.0-0.011) ECG Interpretation ECG Interpretation: Sinus rate 82 Prolonged IA interval RBBB ST depression in anterolateral leads T waves not upright in V3-V6 compared to 08/19/16 Time: 08:27 Interpreted by: ED physician X-Ray Chest Interpretation Chest Xray Interpretation: IMPRESSION: Limited portable chest demonstrating a mildly prominent cardiac size. As clinically appropriate, a short-term followup chest series (with PA and lateral views) performed in deep inspiration is suggested for further evaluation. Dictated by: Efra Patino M.D. on 11/27/2016 at 8:01 Approved by: Efra Patino M.D. on 11/27/2016 at 8:04 View: Portable, 1 view Interpretation / Wet Read by: Interpret - Radiologist Re-Eval/Medical Decision Med Decision/Clinical Course 81-year-old male presenting to the ED for evaluation of a brief episode of chest pain earlier today, since completely resolved. Differential includes ACS , musculoskeletal pain, pneumothorax, aortic dissection, PE, etc. No evidence of pneumothorax on chest x-ray or exam. Not clinically consistent with PE; low risk by Well's and symptoms have resolved, no dyspnea. Not clinically consistent with aortic dissection, especially in light of resolved pain, no widened mediastinum, equal pulses throughout, etc. He does have known coronary disease and is supposed to be scheduled for CABG in the next several weeks. EKG demonstrates sinus rhythm with a rate of [address] depression in the anterolateral leads; only significant change that I can appreciate is that his T waves are now upright in V3 through V6 compared to the last EKG I have on August 19. At patient's request, contacted his primary concrete boom pump operator in [place]. Discussed with Dr. Colon, a colleague of patient's concrete boom pump operator Dr. Paz, who stated that if he is chest pain free, he should be discharged with a prescription for Imdur and consider increasing his metoprolol to 50 mg qd. Discussed also w/ Dr. Camargo, a cardiac surgery colleague family preservation caseworker for patient' s cardiac surgeon Dr. Aguilar, who recommends starting Imdur 30 mg qd and not changing his metoprolol for now. Troponin here negative 3. Patient will make a follow up appointment today to arrange for the surgery and follow up with his PCP tomorrow. Laboratory studies here reviewed, all grossly within normal limits and/or stable from previous. Given the above, as well as complete resolution of patient's symptoms after an extended period of observation here in the emergency department, reasonable to discharge home with very careful return precautions and follow-up tomorrow as per above. Patient agreeable to the plan as stated, no further questions. Time of Eval: 12:44 Re-Evaluation/Progress Note: Rechecked pt. Discussed plan for consult with cardiac surgeon. Patient understands and agrees with plan. All questions addressed at this time. Time of Eval: 14:00 Re-Evaluation/Progress Note: Discussed plan for discharge. Patient understands and agrees with plan. All questions addressed at this time. Consultation : Consulted With: Cardiology Call Returned at: 12:57 Note: Discussed pt's case with family preservation caseworker (Dr. Camargo) for pt's cardiac surgeon (Dr. Aguilar). Suggests start 30mg Imdur daily with no increase in metoprolol. Counseled Regarding: Diagnosis, Lab results, Need for follow-up, When/why to return to ED Discharge & Departure Primary Impression: Chest pain Chest pain type: unspecified Qualified Code: R07.9 - Chest pain, unspecified Disposition: Home Discharge Condition All VS Reviewed: Yes Condition: Improved Additional Instructions: Thank you for allowing us to be a part of your care in the ED today. Your emergency department results, including your EKG and troponin, are reassuring. After discussion with the cardiology service and the cardiothoracic surgery service at [place], we do not think that there is an emergent cause for your symptoms today that would require admission to the hospital; however, it is extremely important that you follow-up with them as discussed in the next 1-2 days. Start taking the prescription I wrote for you 1 time daily as prescribed. Discuss this with your primary doctor and with Dr. Paz. Please return to the emergency department for any new or worsening symptoms including any nausea, vomiting, abdominal pain, shortness of breath, chest pain , one sided weakness/numbness, fevers, or chills, or if there's anything else of concern to you. Referrals: Maurizio Rowland MD (PCP) Nikia Attestation Portions of this note were transcribed by Hui Koch. I, Dr. Kevin personally performed the history, physical exam and medical decision-making; I reviewed and confirmed the accuracy of the information in the transcribed note. Signed by: Nikia Dinero, 11/27/16 copies to: Maurizio Rowland MD, William B MD Nov 27, 2016 08:28 HUI KOCH Nov 27, 2016 08:42
[2016-11-27] MEDS ORDERED: HYDR25TA4 PO (08:42)
[2016-11-27 08:43] LABS: BASOPHILS % (AUTO) 0.6 % (0-3); EOSINOPHILS % (AUTO) 2.5 % (0-5); MONOCYTES % (AUTO) 10.6 % (4-12); Mean Corpuscular Hemoglobin 30.8 pg (27.0-35.0); Mean Corpuscular Volume 96.4 fL (81-100); NEUTROPHILS % (AUTO) 59.2 % (40-74); Platelet Count 145 bil/L (150-400)
[2016-11-27 09:03] LABS: TROPONIN T 0.01 ug/L (0.0-0.011)
--- NOTE | 2016-11-27 09:06 | DRSVH ---
PROCEDURE: X-RAY CHEST ONE VIEW, PORTABLE ([id number]) INDICATIONS: CHEST PAIN TECHNIQUE: One view of the chest was acquired. COMPARISON: [facility], CT, CHEST ANGIO-PE, 12/03/2012, 2:06. [facility], CR , CHEST 2VW, 12/03/2012, 0:09. [facility], CR, XR CHEST 1VW (PORTABLE), 08/18/2016, 8:28. [facility], CR, XR CHEST 1VW (PORTABLE), 08/19/2016, 4:20. FINDINGS: Surgical changes and devices: Monitoring leads are seen overlying the chest. Lungs and pleura: Low lung volumes are noted. This causes a crowded appearance to the lung markings and limits evaluation. On this semiupright portable chest examination, no large pneumothorax or larg e pleural effusions are seen. No focal infiltrates are seen. Mediastinum: Mediastinal contours appear normal. Heart size is mildly prominent normal. Bones and chest wall: Age-appropriate bony degenerative changes are seen. No suspicious bony lesion s. Overlying soft tissues appear unremarkable. IMPRESSION: Limited portable chest demonstrating a mildly prominent cardiac size. As clinically appropriate, a short-term followup chest series (with PA and lateral views) performed i n deep inspiration is suggested for further evaluation. Dictated by: Efra Patino M.D. on 11/27/2016 at 8:01 Approved by: Efra Patino M.D. on 11/27/2016 at 8:04
[2016-11-27 09:14] LABS: Magnesium 1.9 mg/dL (1.6-2.6)
[2016-11-27] MEDS ORDERED: ISOS30TA4 PO (14:23)
== END 2016-11-27 15:10 | disposition home or self-care (01) ==
LOC: SED 08:23
DX: R07.9 Chest pain, unspecified (principal); I10 Essential (primary) hypertension; K21.9 Gastro-esophageal reflux disease without esophagitis; Z96.642 Presence of left artificial hip joint; Z86.79 Personal history of other diseases of the circulatory system; Z86.39 Personal history of other endocrine, nutritional and metabolic disease; Z85.828 Personal history of other malignant neoplasm of skin; Z90.89 Acquired absence of other organs; Z79.82 Long term (current) use of aspirin; Z79.52 Long term (current) use of systemic steroids